=== PATIENT | male | born 1940 | race Caucasian/White ===

== ENCOUNTER 2016-04-18 18:53 | Emergency (ER) | payer OTHER, MEDICARE ==
[~2016-04-18] VITALS: Ht 188 cm; Wt 131.5 kg
[~2016-04-18 18:53] MED LIST: ASPIR 8181 MG PO; FLAGYL 25O MG250 M1 PO; K-DUR 20MEQ TA20 MEQ PO; NORVASC 5MG TAB5 MG PO
--- NOTE | 2016-04-18 19:00 | ED SKIN/ALLERGY COMPLAINT ---
History of Present Illness General Chief Complaint: Dyspnea (COPD, CHF, Other) Stated Complaint: BIBA ALLERGIC REACTION, DIFF BREATHING Source: patient, old records Exam Limitations: no limitations Vital Signs & Intake/Output Vital Signs & Intake/Output Vital Signs Date Time Temp Pulse Resp B/P Pulse O2 O2 Flow FiO2 Ox Delivery Rate 04/18 2215 96.7 93 20 140/67 95 Room Air 04/18 1900 99.5 105 28 130/64 98 Nasal 2.0L Cannula 04/18 185 94 Aerosol Mask Allergies Coded Allergies: shellfish derived (ANAPHYLAXIS 04/18/16) Triage Nurses Notes Reviewed? yes Onset: Abrupt Duration: minute(s): (30) Timing: single episode today Severity: severe Possible Factors: COCONUT SHRIMP No Modifying Factors: none Associated Symptoms: RESPIRATORY DISTRESS HPI: This is a 76-year-old male with history of hypertension, neuropathy and previous possible allergic reaction to both coconut oil and shellfish who presents by EMS from home for chief complaint of severe distress. Patient states he ate about 12-13 coconut sugar approximately an hour prior to arrival. At about 640 he started to feel itchy and he says the swelling was pouring off of him and he was short of breath. Patient found hypoxic at 89% on room air, dusky and mottled with respiratory distress and wheezing. He was given 3 albuterol treatments as well as IV Benadryl 25 mg and subcutaneous epinephrine. Patient took 50 g of Benadryl prior to EMS arrival. Patient states that he feels dramatically better at this time. Awake alert and mentating. No stridor. Bilateral wheezing and rhonchi heard. Enlarged heart but no obvious swelling. Denies any chest pain. Denies any confusion or nausea at this time. (TORRI PACHECO,WALT) Reconcile Medications Amlodipine (Norvasc 5MG Tab) 5 MG TABLET 1 TAB PO DAILY HTN (Reported) Aspirin (Ecotrin) 81 MG TABLET.DR 81 MG PO DAILY HEART HEALTH (Reported) Cyanocobalamin (Vitamin B-12) 1,000 MCG TABLET 1 TAB PO DAILY SUPPLEMENT ( Reported) Epinephrine (Epipen 2-Oz) 0.3 MG/0.3 ML AUTO.INJCT 1 INJ IM X1 PRN SEVERE ALLERGIC REACTION Esomeprazole Magnesium (Nexium) 20 MG CAPSULE.DR 1 CAP PO DAILY GI (Reported) Gabapentin 300 MG CAPSULE 1 CAP PO TID NEUROPATHY (Reported) Multivitamin (Multi-Day Vitamins) 1 EACH TABLET 1 TAB PO DAILY SUPPLEMENT ( Reported) Naproxen Sodium (Aleve) 220 MG CAPSULE 1-2 CAP PO PRN PAIN (Reported) Prednisone 50 MG TABLET 1 TAB PO DAILY allergic reaction Tramadol HCl 50 MG TABLET 1 TAB PO Q6P PRN PAIN (Reported) (LEXIE PACHECO,RICA Thomas) Past History Medical History Any Pertinent Medical History? 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 No (TORRI PACHECO,WALT) Review of Systems Review of Systems Constitutional: Denies: chills, fever, malaise, weakness. Respiratory: Reports: short of breath. Denies: cough, sputum production. Cardiovascular: Denies: chest pain, palpitations. GI: Denies: abdominal pain. Hematologic/Endocrine: Denies: bruising, bleeding, polyuria, polydipsia. (TORRI PACHECO,WALT) Physical Exam Physical Exam General Appearance: well developed/nourished, alert, awake, anxious, moderate distress, obese Head: atraumatic, normal appearance Eyes: Bilateral: normal appearance, PERRL, EOMI. Ears, Nose, Throat: ENLARGED TIME, NO OBVIOUS SWELLING Neck: normal inspection, supple, full range of motion, NO STRIDOR Respiratory: respiratory distress, BILATERAL WHEEZING, RHONCHI Cardiovascular: tachycardia Peripheral Pulses: 2+ radial (R), 2+ radial (L) Gastrointestinal: normal bowel sounds, soft, non-tender Extremities: normal inspection, normal capillary refill, normal range of motion, calf tenderness Skin: intact, normal color, diaphoresis (TORRI PACHECO,WALT) Progress Differential Diagnosis: allergic reaction, anaphylaxis Plan of Care: Orders Procedure Date/time Status TROPONIN LEVEL 04/18 2006 Complete RT ED ORDERS 04/18 1899 Active COMPREHENSIVE METABOLIC PANEL 04/18 1899 Complete CBC WITHOUT DIFFERENTIAL 04/18 1899 Complete EKG 04/18 185 Active Laboratory Tests 04/18/16 2007: Anion Gap 12, Estimated GFR > 60, BUN/Creatinine Ratio 20.9, Glucose 206 H, Calcium 8.5, Total Bilirubin 0.6, AST 64 H, ALT 77 H, Alkaline Phosphatase 84, Troponin I < 0.01, Total Protein 6.5, Albumin 3.8, Globulin 2.7, Albumin/ Globulin Ratio 1.4, CBC w Diff NO MAN DIFF REQ, RBC 4.34 L, MCV 92.2, MCH 30.6, RDW 13.7, MPV 8.1, Gran % 75.0, Lymphocytes % 18.5 L, Monocytes % 5.6, Eosinophils % 0.8, Basophils % 0.1, Absolute Granulocytes 11.7 H, Absolute Lymphocytes 2.9, Absolute Monocytes 0.9 H, Absolute Eosinophils 0.1, Absolute Basophils 0, PUBS MCHC 33.2 04/18/161907: Troponin I Cancelled Hand-Off Endorsed To: LEXIE PACHECO,RICA Thomas Endorsed Time: 1925 Pending: labs, other (REEVALUATION) (WALT WILD MD) Departure Departure Disposition: STILL A PATIENT Condition: Stable Clinical Impression Primary Impression: Anaphylaxis Referrals: ORQUIDEA PACHECO,RAZIA Guaman (PCP/Family) Departure Forms: Customer Survey General Discharge Information (WALT WILD MD) Departure Prescriptions: Current Visit Scripts Prednisone 1 TAB PO DAILY #5 TAB Epinephrine (Epipen 2-Oz) 1 INJ IM X1 PRN SEVERE ALLERGIC REACTION #1 KIT Comments 04/18/16, 23:16... pt feeling well and wishes to go home... 02 sat 95% on room air. Discussed at length with patient and follow up care plan. He shares that he feels comfortable going home. (LEXIE PACHECO,RICA Thomas) Critical Care Note Critical Care Note Critical Care Time: 30-74 min (WALT WILD MD)
[2016-04-18] MEDS ORDERED: TRAMADOL HCL50 M1 PO (19:11)
[2016-04-18] MEDS ORDERED: GABAPENTIN300 M2 PO (19:11)
[2016-04-18] MEDS ORDERED: MULTI-DAY VITA1 EACH PO (19:21)
[2016-04-18] MEDS ORDERED: NEXIUM20 M1 PO (19:21)
[2016-04-18] MEDS ORDERED: VITAMIN B-121000 MC3 PO (19:22)
[2016-04-18] MEDS ORDERED: ALEVE220 M1 PO (19:22)
[2016-04-18 20:30] LABS: ABSOLUTE BASOPHIL COUNT 0 /CUMM (0.0-0.2); ABSOLUTE EOSINOPHIL COUNT 0.1 /CUMM (0.0-0.7); ABSOLUTE GRANULOCYTE CT 11.7 /CUMM (1.4-6.5); ABSOLUTE LYMPH COUNT 2.9 /CUMM (1.2-3.4); ABSOLUTE MONOCYTE COUNT 0.9 /CUMM (0.10-0.60); BASOPHIL % 0.1 % (0.0-2.0); EOSINOPHIL % 0.8 % (0-5); MEAN CORPUSCULAR HGB 30.6 PG (27.0-31.0); MEAN CORPUSCULAR HGB CONC 33.2 G/DL (33.0-37.0); MEAN CORPUSCULAR VOLUME 92.2 FL (80.0-94.0); MEAN PLATELET VOLUME 8.1 FL (7.4-10.4); PLATELET COUNT 159 /CUMM (130-400); RBC DISTRIBUTION WIDTH 13.7 % (11.5-14.5); RED BLOOD CELL CT 4.34 /CUMM (4.70-6.10); WHITE BLOOD CELL COUNT 15.6 /CUMM (4.8-10.8)
[2016-04-18 22:16] VITALS: BP 140/67
[2016-04-18] MEDS ORDERED: PREDNISONE50 M1 PO (23:15)
[2016-04-18] MEDS ORDERED: EPIPEN 2-P0.3 MG/0.3 IM (23:15)
== END 2016-04-18 23:45 ==
LOC: ERH 18:53
PROVIDERS: Emergency Medicine
DX: T78.02XA Anaphylactic reaction due to shellfish (crustaceans), initial encounter (principal)
CPT/HCPCS: 1263; 93005; 93010; 96361; 96374; 96375; J2930

== ENCOUNTER → 2017-04-19 | Day surgery (SDC) | payer OTHER, MEDICARE ==
[~2017-04-19] VITALS: Ht 188 cm; Wt 124.7 kg
[~2017-04-19] MED LIST changes: +ALEVE220 M1 PO; -ASPIR 8181 MG PO; +ASPIRIN EC81 M1 PO; +CENTRUM SILVER1 EAC3 PO; +ELIQUIS5 M1 PO; +EPIPEN 2-P0.3 MG/0.3 IM; +GABAPENTIN300 M2 PO; +METFORMIN HCL500 M3 PO; +NEXIUM20 M1 PO; -NORVASC 5MG TAB5 MG PO; +NORVASC5 M1 PO; +PREDNISONE50 M1 PO; +TAMSULOSIN HCL0.4 M1 PO; +TRAMADOL HCL50 M1 PO; +VITAMIN B-121000 MC3 PO; +VITAMIN D31000 UNI2 PO
--- NOTE | 2017-04-19 13:03 | Operative Report ---
Operative/Inv Procedure Report Surgery Date: 04/19/17 Name of Procedure: Cataract extraction lens implantation left eye Pre-Operative Diagnosis: Age related cataract left eye 20/30 vision 20/60 glare vision Post-Operative Diagnosis: Same Estimated Blood Loss: none Surgeon/Machine Cementer And Folder: Akil PACHECO,Skyler Ya Anesthesia: local monitored anesthesi Complications: None Operative/Procedure Note Note: The patient was brought to the operating room standard monitoring equipment was attached the patient was prepped and draped in the usual fashion for intraocular surgery. A lid speculum was placed to retract the lids. The case was begun by making a temporal incision with a 2.4 mm keratome. The eye was stabilized with a Davis ring during this incision. 1 mL of non-preserved lidocaine was introduced into the anterior chamber to provide anesthesia. The anterior chamber was then filled and deepened with viscoelastic. A curvilinear capsulorrhexis was achieved using a 30-gauge needle and is a cystotome and capsulorrhexis was finished using a Utrata forceps. A second or paracentesis incision was made temporally with a 1 mm MVR blade. The lens was then hydrodissected with balanced salt solution and found to be rotatable. The lens was emulsified using phacoemulsification and a modified four-quadrant cracking technique. The residual cortical material was removed using automated irrigation and aspiration and as much of the anterior capsular rim was cleaned as well as possible. The posterior capsule was cleaned first with the automated machine on a low setting and then manually with a Quinton squeegee. The capsular bag was deepened with viscoelastic. The lens a Technis 1 19.0 Diopter placed into the bag under direct visualization and rotated so that the haptics were at 12 and 6:00. Viscoelastic was then removed from the eye by flushing it out and then by automated irrigation and aspiration. The eye was pressurized to a normal tone. 1/10 of a cc of vancomycin solution was introduced into the anterior chamber to provide antibiotic prophylaxis. The wounds were sealed by hydrating the stroma adjacent to them and the eye was left at a proper tone after the wounds were checked and found not to be leaking. The lid speculum was removed from the orbit. Antibiotic and steroid drops were placed on the eye and then the eye was shielded. Monitoring equipment was removed from the patient and the patient was removed from the operative suite to the holding area. The patient tolerated the procedure well and will be seen in the office tomorrow.
== END ==
LOC: STS 00:43
DX: H25.9 Unspecified age-related cataract (principal); E11.40 Type 2 diabetes mellitus with diabetic neuropathy, unspecified; Z79.84 Long term (current) use of oral hypoglycemic drugs; I10 Essential (primary) hypertension; I48.91 Unspecified atrial fibrillation; Z79.01 Long term (current) use of anticoagulants; E78.00 Pure hypercholesterolemia, unspecified; Z85.72 Personal history of non-Hodgkin lymphomas; Z85.820 Personal history of malignant melanoma of skin
CPT/HCPCS: J2250; V2632

== ENCOUNTER → 2017-06-14 | Day surgery (SDC) | payer OTHER, MEDICARE ==
[~2017-06-14] VITALS: Ht 188 cm; Wt 124.7 kg
[~2017-06-14] MED LIST changes: +COUMADIN7.5 M1 PO; +GABAPENTIN600 M1 PO; +PRAVACHOL40 M1 PO; +VITAMIN B-12500 MC2 PO
--- NOTE | 2017-06-14 08:35 | Operative Report ---
Operative/Inv Procedure Report Surgery Date: 06/14/17 Name of Procedure: Cataract extraction lens implantation right eye Pre-Operative Diagnosis: Age-related cataract right eye 20/30 vision 20/60 glare vision Post-Operative Diagnosis: Same Estimated Blood Loss: none Surgeon/Software Quality Specialist: Akil PACHECO,Skyler Ya Anesthesia: local monitored anesthesi Complications: None Operative/Procedure Note Note: The patient was brought to the operating room standard monitoring equipment was attached the patient was prepped and draped in the usual fashion for intraocular surgery. A lid speculum was placed to retract the lids. The case was begun by making a temporal incision with a 2.4 mm keratome. The eye was stabilized with a Davis ring during this incision. 1 mL of non-preserved lidocaine was introduced into the anterior chamber to provide anesthesia. The anterior chamber was then filled and deepened with viscoelastic. A curvilinear capsulorrhexis was achieved using a 30-gauge needle and is a cystotome and capsulorrhexis was finished using a Utrata forceps. A second or paracentesis incision was made temporally with a 1 mm MVR blade. The lens was then hydrodissected with balanced salt solution and found to be rotatable. The lens was emulsified using phacoemulsification and a modified four-quadrant cracking technique. The residual cortical material was removed using automated irrigation and aspiration and as much of the anterior capsular rim was cleaned as well as possible. The posterior capsule was cleaned first with the automated machine on a low setting and then manually with a Quinton squeegee. The capsular bag was deepened with viscoelastic. The lens a Technis 1 18.5 Diopter placed into the bag under direct visualization and rotated so that the haptics were at 12 and 6:00. Viscoelastic was then removed from the eye by flushing it out and then by automated irrigation and aspiration. The eye was pressurized to a normal tone. 1/10 of a cc of vancomycin solution was introduced into the anterior chamber to provide antibiotic prophylaxis. The wounds were sealed by hydrating the stroma adjacent to them and the eye was left at a proper tone after the wounds were checked and found not to be leaking. The lid speculum was removed from the orbit. Antibiotic and steroid drops were placed on the eye and then the eye was shielded. Monitoring equipment was removed from the patient and the patient was removed from the operative suite to the holding area. The patient tolerated the procedure well and will be seen in the office tomorrow.
== END ==
LOC: STS 01:08
DX: H25.9 Unspecified age-related cataract (principal); I10 Essential (primary) hypertension; E11.9 Type 2 diabetes mellitus without complications; Z79.84 Long term (current) use of oral hypoglycemic drugs; I48.91 Unspecified atrial fibrillation; Z79.01 Long term (current) use of anticoagulants
CPT/HCPCS: J2250; V2632

== ENCOUNTER 2017-12-08 09:47 | Inpatient (IN) | payer OTHER, MEDICARE ==
[~2017-12-08] VITALS: Ht 188 cm; Wt 127.9 kg
[~2017-12-08 09:47] MED LIST changes: -VITAMIN B-12500 MC2 PO
[2017-12-08 10:36] LABS: ABSOLUTE BASOPHIL COUNT 0 /CUMM (0.0-0.2); ABSOLUTE EOSINOPHIL COUNT 0.2 /CUMM (0.0-0.7); ABSOLUTE GRANULOCYTE CT 4.9 /CUMM (1.4-6.5); ABSOLUTE LYMPH COUNT 2.5 /CUMM (1.2-3.4); ABSOLUTE MONOCYTE COUNT 0.6 /CUMM (0.10-0.60); BASOPHIL % 0.3 % (0.0-2.0); GRANULOCYTE % 59.9 % (42.2-75.2); HEMATOCRIT 39.9 % (42-52); MEAN CORPUSCULAR HGB 30.8 PG (27.0-31.0); MEAN CORPUSCULAR HGB CONC 34.2 G/DL (33.0-37.0); MEAN CORPUSCULAR VOLUME 90.1 FL (80.0-94.0); MEAN PLATELET VOLUME 8.1 FL (7.4-10.4); PLATELET COUNT 174 /CUMM (130-400); RBC DISTRIBUTION WIDTH 13.6 % (11.5-14.5); RED BLOOD CELL CT 4.43 /CUMM (4.70-6.10); WHITE BLOOD CELL COUNT 8.1 /CUMM (4.8-10.8)
[2017-12-08 10:43] LABS: PT 23.7 SEC (9.4-12.5); PTT 43 SEC (25-37)
[2017-12-08] MEDS ORDERED: LYRICA75 M1 PO (10:48)
[2017-12-08] MEDS ORDERED: CELECOXIB200 M1 PO (10:49)
--- NOTE | 2017-12-08 10:55 | ED NEURO DEFICIT/STROKE ---
See Addendum History of Present Illness General Chief Complaint: Neuro Symptoms/ Deficit Stated Complaint: SIB DR. FERNÁNDEZ FOR CT SCAN OF ?STROKE Source: patient, old records Exam Limitations: no limitations Vital Signs & Intake/Output Vital Signs & Intake/Output Vital Signs Date Time Temp Pulse Resp B/P B/P Pulse O2 O2 Flow FiO2 Mean Ox Delivery Rate 12/08 1810 70 20 160/86 98 12/08 1627 76 20 138/75 98 Room Air 12/08 1308 98.0 82 18 180/89 99 12/08 1200 98.0 88 18 150/71 100 12/08 0954 97.8 97 18 150/77 97 Room Air Allergies Coded Allergies: shrimp (Severe, ANAPHYLAXIS 09/17/16) Reconcile Medications Amlodipine Besylate (Norvasc) 5 MG TABLET 1 TAB PO DAILY HTN (Reported) Celecoxib 200 MG CAPSULE 1 CAP PO BID PAIN (Reported) Cholecalciferol (Vitamin D3) 1,000 UNIT TABLET 1 TAB PO DAILY VITAMIN SUPPORT (Reported) Cyanocobalamin (Vitamin B-12) 1,000 MCG TABLET 1 TAB PO DAILY VITAMIN SUPPORT (Reported) Metformin HCl 500 MG TABLET 1 TAB PO QPM DM (Reported) Multivit-Min/FA/Lycopen/Lutein (Centrum Silver Tablet) 0.4 MG-300 MCG-250 MCG TABLET 1 TAB PO DAILY VITAMIN SUPPORT (Reported) Pravastatin Sodium (Pravachol) 40 MG TABLET 1 TAB PO DAILY CHOLESTEROL ( Reported) Pregabalin (Lyrica) 75 MG CAPSULE 1 CAP PO BID NEUROPATHY (Reported) Tamsulosin HCl 0.4 MG CAP.ER.24H 1 CAP PO DAILY PROSTATE (Reported) Tramadol HCl 50 MG TABLET 1 TAB PO Q6P PRN PAIN (Reported) Warfarin Sodium (Coumadin) 7.5 MG TABLET 1 TAB PO DAILY BLOOD THINNER ( Reported) Triage Note: 77 Y/O MALE SENT BY DR FERNÁNDEZ FOR EVAL OF ? STROKE. PT STATES HE HAD "CHILLS" EARLIER IN THE WEEK BUT WENT TO BED. STATES HE WAS "OK" THE NEXT DAY HOWEVER HAS NOTICED THROUGHOUT THE WEEK THAT HIS R EYE CONTINUES TO BE "OFF". PT STATES HE SEEMS TO HAS LOST PERIPHERAL VISION IN R EYE. FELT "CONFUSED" EARLIER IN THE WEEK AND WAS OFF BALANCE, THOUGH DENIES AT PRESENT. SLIGHT R FACIAL DROOP NOTED WHICH PT IS UNSURE HOW LONG THAT HAS BEEN PRESENT. SPEAKING CLEARLY WITH NO DEFICITS NOTED. TAKEN FOR EKG AND EVAL Triage Nurses Notes Reviewed? yes Onset: Abrupt (5 days ago) Timing: recent history New Weakness: none Altered Sensations: none; decreased visual acuity R side Vision Problem? 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 States that the dizziness and confusion were short lived and resolved the same day, but he continues to have decreased visual field acuity to the right eye. States that he has not fallen recently, no sick contacts, denies palpitations or chest pain, denies weakness to extremities or altered sensorium. Walks with a cane normally , but states he feels like he needs it more since the event 5 days ago. (Eddie Fernandez MD) Past History Travel History Traveled to [place] past 21 day No Medical History Any Pertinent Medical History? 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 No (Eddie Fernandez MD) Review of Systems Review of Systems Constitutional: Reports: see HPI. EENTM: Reports: blurred vision, visual changes. Respiratory: Denies: cough, hemoptysis. Cardiovascular: Denies: chest pain, palpitations. GI: Denies: abdominal pain. Neurological/Psychological: Denies: ataxia, cognitive dysfunction, numbness. (Eddie Fernandez MD) Physical Exam Physical Exam General Appearance: well developed/nourished, no apparent distress, alert, awake , comfortable Head: atraumatic, normal appearance Eyes: Right: vision change (decreased lateral, inferior ). Bilateral: PERRL, EOMI. Ears, Nose, Throat: normal ENT inspection Neck: normal inspection Respiratory: normal breath sounds, lungs clear Cardiovascular: normal peripheral pulses, irregularly irregular Peripheral Pulses: 2+ radial (R), 2+ radial (L) Gastrointestinal: soft, non-tender Cranial Nerves: normal hearing, normal speech, PERRL, facial droop (slight r sided) Coordination/Gait: normal finger to nose Motor/Sensory: no motor/sensory deficits Reflexes: 2+: bicep (R), bicep (L), ankle (R), ankle (L). Skin: intact Core Measures CVA/TIA Diagnosis: Yes NIH Stroke Scale NIH Stroke Scale Response Value Level of Consciousness alert 0 LOC Questions answers both correctly 0 LOC Commands obeys both correctly 0 Best Gaze normal 0 Visual Reyna partial hemianopia 1 Facial Paresis minor 1 Motor Arm - Left no drift 0 Motor Arm - Right no drift 0 Motor Leg - Left no drift 0 Motor Leg - Right no drift 0 Limb Ataxia no ataxia 0 Sensory normal 0 Best Language no aphasia 0 Dysarthria normal articulation 0 Extinction and Inattention no neglect 0 Total 2 Date Last Known Well: 12/04/17 Symptom Start Date: 12/04/17 tPA Risk/Benefit discussion I have discussed the risks, benefits, and alternatives of Alteplase treatment including: - If given promptly, can resolve or have major improvement in stroke symptoms. - Bleeding (hemorrhage) is the most common risk that can occur. - Bleeding may occur into the brain and cause~terminal makeup operator serious disability~ including - this is rare, affecting about 1% of patients. - Alternative treatments with proven benefit for patients with stroke include aspirin and care in a specialized unit where staff members pay careful attention to a variety of basic aspects of care. tPA given? No Reason tPA not given Medical Contraindication Swallow Evaluation Not Applicable Sepsis Present: No Sepsis Focused Exam Completed? No (Diallo Fernandez MD[email or web address]) Progress Differential Diagnosis: hypoglycemia, stroke, tia, embolic phenomenon to R eye Plan of Care: Orders Procedure Date/time Status Regular Diet 12/09 B Active LIPID PANEL 12/09 599 Active CBC WITHOUT DIFFERENTIAL 12/09 599 Active BASIC ELECTROLYTES PLUS BUN&CR 12/09 599 Active ECHOCARDIOGRAM 12/09 1915 Active Pathway - chart 12/08 1914 Active Patient Data 12/08 1914 Active Code Status 12/08 1914 Active ED Holding Orders 12/09 1831 Active Admit to inpatient 12/08 1832 Active Vital Signs 12/08 183 Active Code Status 12/08 1832 Complete Intake & Output 12/08 1041 Active URINE DRUG SCREEN FOR ER ONLY 12/08 0951 Complete URINALYSIS 12/08 950 Complete TROPONIN LEVEL 12/08 950 Complete PARTIAL THROMBOPLASTIN TIME 12/08 950 Complete PROTHROMBIN TIME 12/08 0851 Complete COMPREHENSIVE METABOLIC PANEL 12/08 950 Complete CBC WITHOUT DIFFERENTIAL 12/08 950 Complete EKG 12/08 950 Active [id number] DOPPLER 12/08 UNK Active SPEECH EVALUATION 12/08 UNK Active PT Evaluate & Treat 12/08 UNK Active House Staff 12/08 UNK Active VTE Mechanical Prophylaxis 12/08 UNK Active Vital Signs 12/08 UNK Active Telemetry/Director Of Human Resources 12/08 UNK Active NIH Stroke Scale 12/08 UNK Active Activity/Ambulation 12/08 UNK Active Current Medications Sig/Yong Start time Last Medication Dose Stop Time Status Admin Aspirin 81 MG DAILY 12/09 0900 UNVr (Aspirin) Atorvastatin Calcium 80 MG 1700 12/08 1930 UNVr (Lipitor) Laboratory Tests 12/08/17 1138: Urine Opiates Screen < 100, Methadone Screen < 40, Barbiturate Screen < 60, Ur Phencyclidine Scrn < 6.00, Amphetamines Screen < 100, U Benzodiazepines Scrn < 85, Urine Cocaine Screen < 50, Urine Cannabis Screen < 5.00, Urine Color YEL, Urine Clarity HAZY H, Urine pH 6.0, Ur Specific Standish >= 1.030, Urine Protein NEG, Urine Ketones NEG, Urine Nitrite NEG, Urine Bilirubin NEG, Urine Urobilinogen 0.2, Ur Leukocyte Esterase NEG, Ur Microscopic SEDIMENT EXAMINED, Urine RBC 1-3, Urine WBC RARE, Ur Epithelial Cells FEW, Urine Crystals 4+ CA OX H, Urine Bacteria FEW H, Urine Hemoglobin SMALL H, Urine Glucose NEG 12/08/17 1002: Anion Gap 10, Estimated GFR > 60, BUN/Creatinine Ratio 23.3, Glucose 127 H, Calcium 9.1, Total Bilirubin 0.8, AST 35, ALT 41, Alkaline Phosphatase 85, Troponin I < 0.01, Total Protein 7.2, Albumin 4.4, Globulin 2.8, Albumin/ Globulin Ratio 1.6, PT 23.7 H, INR 2.16 H, APTT 43 H, CBC w Diff NO MAN DIFF REQ, RBC 4.43 L, MCV 90.1, MCH 30.8, MCHC 34.2, RDW 13.6, MPV 8.1, Gran % 59.9, Lymphocytes % 30.5, Monocytes % 7.3, Eosinophils % 2.0, Basophils % 0.3, Absolute Granulocytes 4.9, Absolute Lymphocytes 2.5, Absolute Monocytes 0.6, Absolute Eosinophils 0.2, Absolute Basophils 0 Radiologist called around 12pm to speak with HALLEY Goetz about pts CT findings, possible lesion noted in parietal/occipital and recommend MRI w + w/o contrast. MRI showed subacute occipital lobe infarct. SPoke with neurology on the phone regarding findings, who stated to admit the patient. Patient did want to leave AMA, and neurology stated that he was not to drive home. Patient spoke with his who convinced him to stay overnight. Spoke with Dr Mcguire who will admit patient under observation in telemetry. Diagnostic Imaging: Viewed by Me: CT Scan, MRI. Discussed w/RAD: MRI. Initial ED EKG: AFIB (Jim PACHECO,Eddie) Departure Departure Disposition: STILL A PATIENT Condition: Stable Clinical Impression Primary Impression: Homonymous hemianopsia Qualifiers: Laterality: right Qualified Code: H53.461 - Homonymous bilateral field defects, right side Referrals: Rajesh Fernández MD (PCP/Family) Departure Forms: Customer Survey General Discharge Information (Eddie Fernandez MD) Observation Note [facility] Patient In: Non-ED OBS Care Area Rationale for Observation: My rational for observation is as follows Patient with subacute CVA x 3 days, requires neuro evaluation. Patient is therapeutic on coumadin. Was briefly off coumadin for epidural injection.. Resident Co-Sign Statement Statement: ED Attending supervision documentation- [x] I saw and evaluated the patient. I have also reviewed all the pertinent lab results and diagnostic results. I agree with the findings and the plan of care as documented in the Resident's documentation. 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 Exam reveals lateral right eye visual field deficits. Agree with observation admission [] I have reviewed the ED Record and agree with the Resident's documentation. [] Additions or exceptions (if any) to the Resident's note and plan are summarized below: [] (Janeen PACHECO, Angus)
--- NOTE | 2017-12-08 12:07 | CT SCAN REPORT ---
EXAMINATION: CT HEAD WITHOUT CONTRAST CLINICAL INFORMATION: Neuro symptoms. Rule out ICH/mass. COMPARISON: None. TECHNIQUE: Contiguous axial imaging was performed from the skull base to vertex without intravenous administration of contrast. DLP: 636 mGy-cm. FINDINGS: There is ill-defined focus of mild hyperdensity with marginating hypodensity involving the subcortical white matter of the high left parietal lobe. The cortical costa matter is spared. There is no regional mass effect or effacement of sulci. The remainder of the brain parenchyma appears normal without hemorrhage, large territory infarction, or extra-axial collection. There is mild commensurate prominence of the ventricles and sulci without evidence of hydrocephalus. There is mild paranasal sinus mucosal thickening without fluid levels. The mastoid air cells are clear. The calvarium is intact. The dural venous sinuses demonstrate normal attenuation for noncontrast technique. IMPRESSION: - Ill-defined attenuation in the subcortical white matter of the high left parietal lobe with underlying lesion is suspected. Given that the cortical costa matter appears spared an infarct is considered less likely. A dedicated brain tumor protocol MRI without and with contrast is recommended for diagnostic evaluation. No significant mass effect. - No other acute intracranial abnormality. RECOMMENDATION: Brain MRI without and with contrast to include postcontrast ROBERTS/MPRAGE sequence. This critical result was discussed with Merly Goetz on 12/08/2017 12:01 PM, and it was ascertained that the content and urgency of the report was understood at the time of direct communication.
--- NOTE | 2017-12-08 15:29 | MRI REPORT ---
EXAMINATION: MR BRAIN WITHOUT AND WITH CONTRAST CLINICAL INFORMATION: Evaluate brain lesion/mass seen on CT scan. COMPARISON: Head CT performed earlier the same day. TECHNIQUE: Multiplanar, multisequence imaging of the brain was performed before and after the intravenous administration of 10 mL of Gadavist. FINDINGS: There is mildly expansile gyriform T2/FLAIR hyperintensity in the left occipital lobe with some associated susceptibility signal and diffuse gyriform enhancement. The adjacent sulci are effaced but no regional mass effect is seen. There are moderate foci of T2 hyperintensity throughout the bilateral cerebral white matter and central dejon compatible with small vessel ischemic changes. No lobar hemorrhage is seen. There is no extra-axial collection. There is mild brain parenchymal volume loss with prominence of the ventricles and sulci. Except as above no abnormal intracranial enhancement is seen. The major arterial flow voids are preserved at the skull base. The orbital contents are normal. There is moderate paranasal sinus mucosal thickening without fluid levels. IMPRESSION: Mildly expansile gyriform T2/FLAIR hyperintensity in the left occipital lobe with associated enhancement and petechial hemorrhage. The imaging findings interpreted in conjunction with the prior head CT are most compatible with a subacute infarct. No underlying mass lesion is seen. The remainder of the brain parenchyma is within normal limits allowing for moderate small vessel ischemic changes in the cerebral white matter and central dejon.
--- NOTE | 2017-12-08 19:05 | History & Physical ---
Dominga Moseley 12/08/171904: General Information and HPI MD Statement: I have seen and personally examined MIREYA MORRIS and documented this H&P. The patient is a 77 year old M who presented with a patient stated chief complaint of []. Source of Information: patient, family Exam Limitations: no limitations History of Present Illness: 77 year old male with PMH Afib on coumadin, JERMAN on CPAP (followed by Dr. Segura ), HTN, Chronic LBP (receiving injections of steroids last dose 12/02/17), BLE peripheral nephropathy, Non hodgkins lymphoma (last chemo 6 years ago) presenting with 5-6 day history of confusion, lightheadedness, fatigue, slight headache, and right sided vision loss. He also reports associated chills. Patient states he held his coumadin for 5 days prior to back injection and then restarted on 12/02 after the injection. He states he has been more 'clumsy and bumping into items on the right side of his body'. He states he was driving and almost missed a right hand turn 2/2 inability to see the turn. Denies chest pain, SOB, fever, recent illness, history of similar sx. Patient does report increased stress in his like currently: brother 2 weeks ago and his son is going through a divorce. Allergies/Medications Allergies: Coded Allergies: shrimp (Severe, ANAPHYLAXIS 09/17/16) Past History Travel History Traveled to [place] past 21 day No Medical History Neurological: severe neuropathy EENT: NONE Cardiovascular: AFIB, hypertension Respiratory: bronchitis Gastrointestinal: DIARRHEA Hepatic: NONE Renal: NONE Musculoskeletal: spinal stenosis Psychiatric: NONE Endocrine: diabetes Blood Disorders: NONE Cancer(s): melanoma, LYMPHOMA of the spine ICU RN/Reproductive: NONE Other Medical Hx: JERMAN on CPAP History of MRSA: No History of VRE: No History of CDIFF: Yes Surgical History Surgical History: non-contributory Past Family/Social History Psychosocial History Where do you live? Home Who Do You Live With? spouse Services at Home: None Primary Language: Frisian Smoking Status: Former Smoker (quit 50 yrs ago) ETOH Use: occasional use Illicit Drug Use: denies illicit drug use Employment History Employment Employed Profession/Employer [employer] Review of Systems Review of Systems Constitutional: Reports: chills, malaise. Denies: diaphoresis, fever. EENTM: Reports: visual changes. Cardiovascular: Reports: no symptoms. Respiratory: Reports: no symptoms. GI: Reports: no symptoms. Genitourinary: Reports: no symptoms. Musculoskeletal: Reports: no symptoms. Skin: Reports: no symptoms. Neurological/Psychological: Reports: ataxia, confusion, headache. Exam & Diagnostic Data Last 24 Hrs of Vital Signs/I&O Vital Signs Date Time Temp Pulse Resp B/P B/P Pulse O2 O2 Flow FiO2 Mean Ox Delivery Rate 12/08 2058 98.0 88 20 143/81 95 Room Air 12/08 1810 70 20 160/86 98 12/08 1627 76 20 138/75 98 Room Air 12/08 1308 98.0 82 18 180/89 99 12/08 1200 98.0 88 18 150/71 100 12/08 0954 97.8 97 18 150/77 97 Room Air Intake & Output 12/08 1600 12/08 0800 12/08 0000 Intake Total 0 Output Total Balance 0 Intake, Oral 0 Patient 280 lb Weight Weight Reported by Patient Measurement Method Physical Exam General Appearance Alert, Oriented X3, Cooperative, No Acute Distress Skin No Rashes Skin Temp/Moisture Exam: Warm/Dry HEENT Atraumatic, PERRLA, EOMI, Mucous Membr. moist/pink Neck Supple, +2 Carotid Pulse wo Bruit Cardiovascular Regular Rate, Normal S1, Normal S2, No Murmurs Lungs Clear to Auscultation Abdomen Normal Bowel Sounds, Soft, No Tenderness Neurological Normal Speech, Strength at 5/5 X4 Ext, Normal Tone, Sensation Intact, right hemianopsia, left visual goldsmith intact Assessment/Plan Assessment: 77 year old male with PMH Afib on coumadin, JERMAN on CPAP (followed by Dr. Segura ), HTN, Chronic LBP (receiving injections of steroids last dose 12/02/17), BLE peripheral nephropathy, Non hodgkins lymphoma (last chemo 6 years ago) presenting with 5-6 day history of confusion, lightheadedness, fatigue, slight headache, and right sided vision loss. ED work up significant for MRI findings consistent with left occipital lobe subacute infarct with petecial hemorrhage. Patient will be admitted to ICU with increased INR on coumadin in setting of petercial hemorrhage on MRI. Problem List: 1. Subacute left occipital lobe infarct 2. Afib 3. JERMAN 4. HTN Admission Data: VS T97.8 P97 RR18 BP150/77 Sat 97%RA Labs: WBC 8.1 H/H 13.7/39.9 Plt 174 Chemistry WNL trop negative, INR 2.16, UA neg, Utox neg CT head: IMPRESSION: - Ill-defined attenuation in the subcortical white matter of the high left parietal lobe with underlying lesion is suspected. Given that the cortical costa matter appears spared an infarct is considered less likely. A dedicated brain tumor protocol MRI without and with contrast is recommended for diagnostic evaluation. No significant mass effect. - No other acute intracranial abnormality. RECOMMENDATION: Brain MRI without and with contrast to include postcontrast ROBERTS/MPRAGE sequence. MRI brain: IMPRESSION: Mildly expansile gyriform T2/FLAIR hyperintensity in the left occipital lobe with associated enhancement and petechial hemorrhage. The imaging findings interpreted in conjunction with the prior head CT are most compatible with a subacute infarct. No underlying mass lesion is seen. The remainder of the brain parenchyma is within normal limits allowing for moderate small vessel ischemic changes in the cerebral white matter and central dejon. #Subacute left occipital lobe infarct-possibly 2/2 interruption of anticoagulation with history of Afib -Echo -Carotid US -Neurology consult -Hold coumadin for now -ASA 81mg -Atorvastatin 80mg daily -Neuro checks q1hour -Bedside swallow -ICU monitoring -Speech eval -PT/OT #Afib -hold coumadin in setting of petechial hemorrhage -monitor on tele #JERMAN -CPAP #HTN -monitor BP DVT prophylaxis: alps/ambulation/no chemical tx 2/2 acute brain bleed Code status: full code As Ranked By This Provider Problem List: 1. Homonymous hemianopsia Qualifiers Laterality: right Qualified Code: H53.461 - Homonymous bilateral field defects, right side 2. CVA (cerebral vascular accident) Core Measures/Misc (11/28) Acute Coronary Syndrome ACS Diagnosis: No Congestive Heart Failure Congestive Heart Failure Diagnosis No Cerebrovascular Accident CVA/TIA Diagnosis: Yes NIH Stroke Scale: Total 1 Date Last Known Well: 12/04/17 Symptom Start Date: 12/04/17 tPA Risk/Benefit discussion I have discussed the risks, benefits, and alternatives of Alteplase treatment including: - If given promptly, can resolve or have major improvement in stroke symptoms. - Bleeding (hemorrhage) is the most common risk that can occur. - Bleeding may occur into the brain and cause~care home serious disability~ including - this is rare, affecting about 1% of patients. - Alternative treatments with proven benefit for patients with stroke include aspirin and care in a specialized unit where staff members pay careful attention to a variety of basic aspects of care. tPA given? No Reason tPA not ordered Medication Refused (neuro rec no tpa) Swallow Evaluation Not Applicable VTE (View Protocol) VTE Risk Factors Age>40 No Mechanical VTE Prophylaxis d/t N/A MechProphylax Ordered No VTE Pharm Prophylaxis d/t Bleeding (Active) Sepsis (View protocol) Sepsis Present: No If YES complete Sepsis Event Note If YES complete Sepsis Event Note Brandon PACHECO,[place] 12/08/17 2206: General Information and HPI Allergies/Medications Home Med list Amlodipine Besylate (Norvasc) 5 MG TABLET 1 TAB PO DAILY HTN (Reported) Atorvastatin Calcium (Lipitor) 80 MG TABLET 1 TAB PO DAILY cholesterol Celecoxib 200 MG CAPSULE 1 CAP PO BID PAIN (Reported) Cholecalciferol (Vitamin D3) 1,000 UNIT TABLET 1 TAB PO DAILY VITAMIN SUPPORT (Reported) Cyanocobalamin (Vitamin B-12) 1,000 MCG TABLET 1 TAB PO DAILY VITAMIN SUPPORT (Reported) Metformin HCl 500 MG TABLET 1 TAB PO QPM DM (Reported) Multivit-Min/FA/Lycopen/Lutein (Centrum Silver Tablet) 0.4 MG-300 MCG-250 MCG TABLET 1 TAB PO DAILY VITAMIN SUPPORT (Reported) Pregabalin (Lyrica) 75 MG CAPSULE 1 CAP PO BID NEUROPATHY (Reported) Tamsulosin HCl 0.4 MG CAP.ER.24H 1 CAP PO DAILY PROSTATE (Reported) Tramadol HCl 50 MG TABLET 1 TAB PO Q6P PRN PAIN (Reported) Warfarin Sodium (Coumadin) 7.5 MG TABLET 1 TAB PO DAILY BLOOD THINNER ( Reported) Core Measures/Misc (11/28) Cerebrovascular Accident CVA/TIA Diagnosis: Yes NIH Stroke Scale: Total 2 Date Last Known Well: 12/02/17 Time Last Known Well: 1999 Symptom Start Date: 12/03/17 tPA Risk/Benefit discussion I have discussed the risks, benefits, and alternatives of Alteplase treatment including: - If given promptly, can resolve or have major improvement in stroke symptoms. - Bleeding (hemorrhage) is the most common risk that can occur. - Bleeding may occur into the brain and cause~care home serious disability~ including - this is rare, affecting about 1% of patients. - Alternative treatments with proven benefit for patients with stroke include aspirin and care in a specialized unit where staff members pay careful attention to a variety of basic aspects of care. Not a candidate for tPA tPA given? No Reason tPA not ordered Medical Contraindication Swallow Evaluation Pass Current/Past Hx AFib/AFlutter Yes No Antithrombotic d/t Active Bleeding No Anticoagulant d/t Medical Contraindication Sepsis (View protocol) If YES complete Sepsis Event Note If YES complete Sepsis Event Note Resident Review Statement Resident Statement: examined this patient, discussed with management intern, agreed with management intern, discussed with family, reviewed EMR data (avail), discussed with nursing , discussed with case mgmt, reviewed images, amended to note Other Findings: Patient is an 52-year-old male with past medical history significant for A. fib on warfarin, JERMAN CPAP, HTN, HLD, bilateral lower extremity neuropathy, lower back pain on steroid injections presented to [facility] after being sent for Dr. Fernández for concerns of decreased vision on his right side. Patient started experiencing symptoms 5 days ago. He was recently off anticoagulation for steroid shot to his back for 5 days restarted on dec 02. He had apparently some confusion, headache, chills which continued without any progression. He does have unsteadiness on his feet, some lightheadedness and fatigue at baseline which remain stable. Had an episode of difficulty driving when he is taking a turn and unable to control it. Patient lost his brother recently and his son is going through a divorce and has a lot of stressful events lately. Vital signs at presentation afebrile, heart rate 97, blood pressure 150/70 mmHg, saturating well on room air. Physical examination is significant for type hemianopsia, normal strength, sensation, other cranial loss intact. Lungs clear, heart S1-S2 normal. Labs are significant for INR 2.16, crystals in urine, BUN 21. MRI consistent with left occipital enhancement and petechial hemorrhage which are consistent with subacute infarction. Evaluation Patient sustained subacute infarction 5 days ago and remained without any progression so far. I'm concerned about small hemorrhage in the brain in the setting of INR of 2.16. I would certainly want to watch him overnight in ICU with an NIH scale of every 1 hour. Patient received 1 dose of aspirin. He was recently off anticoagulation for a steroid injection to his back pain. Plan Admit to ICU Subacute infarction of left occipital lobe * Atorvastatin 80mg daily * Hold all anticoagulation - including aspirin, warfarin * ECHO, carotid doppler * NIH Q1hr * PT/speech * Neurochecks * ?Permissive HTN JERMAN on CPAP * TRC * Nocturnal CPAP Peripheral neuropathy: continue lyrica 75mg BID chronic Low back pain: Steroid injections Nonhodgkins lymphoma: in remission HLD: started on atorvastatin HTN: hold amlod in the setting of permissive hypertension DVT prophylaxis ALPS Code status Full code Hussein PACHECO,Dick 12/08/17 2236: Core Measures/Misc (11/28) Sepsis (View protocol) If YES complete Sepsis Event Note If YES complete Sepsis Event Note Attending MD Review Statement Attending Statement Attending MD Statement: examined this patient, discuss w/resident/PA/OFFICE AUDITOR, agreed w/resident/PA/OFFICE AUDITOR Attending Assessment/Plan: Patient is seen and examined independently by me. Care plan discussed with medical insurance collector and/or resident. I agree with the physical exam findings and plan of care as outlined above with the following changes and additions. 77 yo M history of A fib on Coumadin, HTN, DM, NHL s/p chemotherapy, peripheral neuropathy, chronic back pain, sleep apnea on CPAP, presents with loss of peripheral vision in right eye. Patient had hold Coumadin for 1 week for spinal epidural injection on 12/02, he resumed his Coumadin on 12/02 evening. His INR is now 2.16. 5 days ago, he had chills, confusion, lightheadedness and loss of right peripheral vision. His chills, confusion and lightheadedness lasted just one day but he had headache the next day. His right peripheral vision loss persists. He denies other visual acuity changes, chest pain, SOB, palpitation, weakness or numbness. On exam, heart: irreg, S1S2, no murmur. Neuro exam significant for right peripheral hemianopsia. In the ED, INR 2.16. Troponin <0.01. MRI brain shows subacute left occipital infarct with petechial hemorrhage. EKG shows A fib at [address]-T changes when compares with previous EKG. Patient is admitted as inpatient to ICU for subacute left occipital infarct with petechial hemorrhage. Neuro check q1h. Hold ASA and Coumadin for now. Atorvastatin 80 mg daily. Monitor INR. Cardiac monitoring. Echocardiogram. Carotid US. Neurology consult. Signed: Dick Savage MD FACP
[2017-12-08 22:33] VITALS: BP 140/70
[2017-12-09] VITALS: BP 150/80
[2017-12-09 04:56] LABS: ABSOLUTE BASOPHIL COUNT 0 /CUMM (0.0-0.2); ABSOLUTE EOSINOPHIL COUNT 0.2 /CUMM (0.0-0.7); ABSOLUTE GRANULOCYTE CT 4.5 /CUMM (1.4-6.5); ABSOLUTE LYMPH COUNT 2.5 /CUMM (1.2-3.4); ABSOLUTE MONOCYTE COUNT 0.6 /CUMM (0.10-0.60); BASOPHIL % 0.3 % (0.0-2.0); EOSINOPHIL % 2.2 % (0-5); GRANULOCYTE % 57.8 % (42.2-75.2); HEMATOCRIT 41.8 % (42-52); MEAN CORPUSCULAR HGB 30.3 PG (27.0-31.0); MEAN CORPUSCULAR HGB CONC 33.1 G/DL (33.0-37.0); MEAN CORPUSCULAR VOLUME 91.4 FL (80.0-94.0); MEAN PLATELET VOLUME 8.3 FL (7.4-10.4); PLATELET COUNT 174 /CUMM (130-400); RBC DISTRIBUTION WIDTH 13.6 % (11.5-14.5); RED BLOOD CELL CT 4.57 /CUMM (4.70-6.10); WHITE BLOOD CELL COUNT 7.7 /CUMM (4.8-10.8)
[2017-12-09 05:15] LABS: PT 22.5 SEC (9.4-12.5)
--- NOTE | 2017-12-09 07:51 | ULTRASOUND REPORT ---
EXAMINATION: DUPLEX BILATERAL CAROTID ULTRASOUND CLINICAL INFORMATION: TIA with vision loss and syncope COMPARISON: None. TECHNIQUE: Duplex bilateral carotid US was performed using real-time ultrasound and Doppler techniques (integrating B-mode 2D vascular images, Doppler spectral analysis and color flow Doppler imaging). These techniques were utilized to interrogate the extracranial carotid and vertebral arteries bilaterally. The degree of stenosis is based off criteria similar to NASCET. FINDINGS: 1. On the right: No plaque is present at the carotid bifurcation and all velocity measurements are normal and do not suggest a stenosis of greater than 50% diameter reduction in the right ICA. The vertebral artery is patent demonstrating antegrade flow. The external carotid on the right shows no significant stenosis. 2. On the left: Plaque is present at the carotid bifurcation but velocity measurements are normal and do not suggest a stenosis of greater than 50% diameter reduction in the left ICA. The vertebral artery is patent demonstrating antegrade flow. The external carotid artery on the left shows no significant stenosis. IMPRESSION: There is plaque present in the left internal carotid artery with normal velocities consistent with a minimal 0-49% stenosis. The right side is normal with no plaque seen.
[2017-12-09 08:00] VITALS: BP 130/80
--- NOTE | 2017-12-09 08:12 | Cons- CRCU ---
Dre Carrillo 12/09/17 0812: General Information and HPI Consulting Request Date of Consult: 12/09/17 Requested By: Dr. Dick Savage Reason for Consult: Left occipital lobe infarct, patient requiring neuro check Q1 hour Source of Information: patient Exam Limitations: no limitations History of Present Illness: Mr. Mcnair is a 77-year-old male with a past medical history of atrial fibrillation on Coumadin, obstructive sleep apnea on CPAP, hypertension,, chronic lower back pain, bilateral lower extremity peripheral neuropathy, 2 times survivor of non-Hodgkin's lymphoma (last chemo 6 years ago). He is presenting to the emergency department with a approximately 5-day history of decreased right temporal vision, difficulty driving, right upper extremity weakness. Patient states he has had not taken his Coumadin since 12/02/2017 because he was scheduled to undergo a epidural for chronic lower back pain on , patient states his neurological symptoms had began on the however he had been reluctant to come to the hospital. Allergies/Medications Allergies: Coded Allergies: shrimp (Severe, ANAPHYLAXIS 09/17/16) Home Med List: Amlodipine Besylate (Norvasc) 5 MG TABLET 1 TAB PO DAILY HTN (Reported) Celecoxib 200 MG CAPSULE 1 CAP PO BID PAIN (Reported) Cholecalciferol (Vitamin D3) 1,000 UNIT TABLET 1 TAB PO DAILY VITAMIN SUPPORT (Reported) Cyanocobalamin (Vitamin B-12) 1,000 MCG TABLET 1 TAB PO DAILY VITAMIN SUPPORT (Reported) Metformin HCl 500 MG TABLET 1 TAB PO QPM DM (Reported) Multivit-Min/FA/Lycopen/Lutein (Centrum Silver Tablet) 0.4 MG-300 MCG-250 MCG TABLET 1 TAB PO DAILY VITAMIN SUPPORT (Reported) Pravastatin Sodium (Pravachol) 40 MG TABLET 1 TAB PO DAILY CHOLESTEROL ( Reported) Pregabalin (Lyrica) 75 MG CAPSULE 1 CAP PO BID NEUROPATHY (Reported) Tamsulosin HCl 0.4 MG CAP.ER.24H 1 CAP PO DAILY PROSTATE (Reported) Tramadol HCl 50 MG TABLET 1 TAB PO Q6P PRN PAIN (Reported) Warfarin Sodium (Coumadin) 7.5 MG TABLET 1 TAB PO DAILY BLOOD THINNER ( Reported) Current Medications: Current Medications Sig/Yong Start time Last Medication Dose Route Stop Time Status Admin Acetaminophen 650 MG Q6P PRN 12/09 0800 AC PO Acetaminophen 1,000 MG Q6P PRN 12/09 0800 AC IV Aspirin 81 MG DAILY 12/09 0900 DC 12/08 PO 2011 Aspirin 0 .STK-MED ONE 12/08 2012 DC PO Atorvastatin Calcium 80 MG 1700 12/08 1930 AC 12/08 PO 2012 Cyanocobalamin 1,000 MCG DAILY 12/09 0900 AC 12/09 PO 0843 Insulin Aspart 0 TIDAC 12/09 1200 AC SC Multivitamins 1 TAB DAILY 12/09 0900 AC 12/09 PO 0843 Pregabalin 75 MG BID 12/08 2207 AC 12/09 PO 0844 Tamsulosin HCl 0.4 MG DAILY 12/09 0900 AC 12/09 PO 0843 Tramadol HCl 50 MG Q6P PRN 12/08 2215 AC PO Review of Systems Review of Systems Constitutional: Reports: see HPI. 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 Home Who Do You Live With? spouse Services at Home: None Primary Language: Luxembourger Smoking Status: Former Smoker (quit 50 yrs ago) ETOH Use: occasional use Illicit Drug Use: denies illicit drug use Employment History Employment: Employed Profession/Employer: [employer] Exam & Diagnostic Data Last 24 Hrs of Vital Signs/I&O Vital Signs Date Time Temp Pulse Resp B/P B/P Pulse O2 O2 Flow FiO2 Mean Ox Delivery Rate 12/09 0843 130/80 12/09 0800 97.8 62 21 130/80 96 12/09 0756 78 96 12/09 0612 53 93 12/09 0217 51 12/09 0028 85 95 12/09 0000 97 Room Air 12/09 0000 35.8 63 24 150/80 97 Room Air 12/08 2233 97.7 74 20 140/70 95 Room Air 12/08 2208 Room Air 12/08 2058 98.0 88 20 143/81 95 Room Air 12/08 1810 70 20 160/86 98 12/08 1627 76 20 138/75 98 Room Air 12/08 1308 98.0 82 18 180/89 99 12/08 1200 98.0 88 18 150/71 100 Intake & Output 12/09 1600 12/09 0800 12/09 0000 Intake Total 100 Output Total 325 Balance 100 -325 Intake, Oral 100 Output, Urine 325 Patient 282 lb 281 lb Weight Weight Bed scale Bed scale Measurement Method Physical Exam General Appearance: well developed/nourished, no apparent distress Head: atraumatic, normal appearance Eyes: Bilateral: PERRL, EOMI. 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 Last 48 Hrs of Labs/Tyrone: Laboratory Tests 12/09/17 0400: Anion Gap 10, Estimated GFR > 60, BUN/Creatinine Ratio 22.5, Triglycerides 159 H, Cholesterol 121, LDL Cholesterol, Calc 48 L, HDL Cholesterol 42, Cholesterol /HDL Ratio 3, PT 22.5 H, INR 2.05 H, CBC w Diff NO MAN DIFF REQ, RBC 4.57 L, MCV 91.4, MCH 30.3, MCHC 33.1, RDW 13.6, MPV 8.3, Gran % 57.8, Lymphocytes % 32.2, Monocytes % 7.5, Eosinophils % 2.2, Basophils % 0.3, Absolute Granulocytes 4.5, Absolute Lymphocytes 2.5, Absolute Monocytes 0.6, Absolute Eosinophils 0.2, Absolute Basophils 0 12/08/17 1138: Urine Opiates Screen < 100, Methadone Screen < 40, Barbiturate Screen < 60, Ur Phencyclidine Scrn < 6.00, Amphetamines Screen < 100, U Benzodiazepines Scrn < 85, Urine Cocaine Screen < 50, Urine Cannabis Screen < 5.00, Urine Color YEL, Urine Clarity HAZY H, Urine pH 6.0, Ur Specific [place] >= 1.030, Urine Protein NEG, Urine Ketones NEG, Urine Nitrite NEG, Urine Bilirubin NEG, Urine Urobilinogen 0.2, Ur Leukocyte Esterase NEG, Ur Microscopic SEDIMENT EXAMINED, Urine RBC 1-3, Urine WBC RARE, Ur Epithelial Cells FEW, Urine Crystals 4+ CA OX H, Urine Bacteria FEW H, Urine Hemoglobin SMALL H, Urine Glucose NEG 12/08/17 1002: Anion Gap 10, Estimated GFR > 60, BUN/Creatinine Ratio 23.3, Glucose 127 H, Calcium 9.1, Total Bilirubin 0.8, AST 35, ALT 41, Alkaline Phosphatase 85, Troponin I < 0.01, Total Protein 7.2, Albumin 4.4, Globulin 2.8, Albumin/ Globulin Ratio 1.6, PT 23.7 H, INR 2.16 H, APTT 43 H, CBC w Diff NO MAN DIFF REQ, RBC 4.43 L, MCV 90.1, MCH 30.8, MCHC 34.2, RDW 13.6, MPV 8.1, Gran % 59.9, Lymphocytes % 30.5, Monocytes % 7.3, Eosinophils % 2.0, Basophils % 0.3, Absolute Granulocytes 4.9, Absolute Lymphocytes 2.5, Absolute Monocytes 0.6, Absolute Eosinophils 0.2, Absolute Basophils 0 Assessment/Plan CRCU Impression/Plan: Mr. Mcnair is a 77-year-old male with a past medical history of atrial fibrillation on Coumadin, obstructive sleep apnea on CPAP, hypertension,, chronic lower back pain, bilateral lower extremity peripheral neuropathy, 2 times survivor of non-Hodgkin's lymphoma (last chemo 6 years ago). He is presenting to the emergency department with a approximately 5-day history of decreased right temporal vision, difficulty driving, right upper extremity weakness. Patient states he has had not taken his Coumadin since 12/02/2017 because he was scheduled to undergo a epidural for chronic lower back pain on , patient states his neurological symptoms had began on the . He states his symptoms have improved, and is interested in going back to work. Problem list: 1. 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 History of hypertension, diabetes mellitus type 2 3. History of A. fib, has not been on Coumadin since 12/02/2017 5. History of sleep apnea on CPAP Respiratory: -will continue CPAP at night Infectious: Stable Cardiac: hypertension will treat if SBP greater than 180 Hematology: Stable Metabolic: Stable Alimentary: patient on consistent carbohydrate 3 diet Neuro: hemorrhage, with resultant right lateral visual field loss after discontinuing warfarin for A. fib on 12/02/2017 artery with normal flow velocities consistent with a minimal 0-49% stenosis cleared by neurology we will transfer back to telemetry. - PT evaluation DVT PPx: ALPS Diet: Consistent Carb 3 Code Status: Full Code Consult Acknowledgment - Thank you for your consult request. Eugenia Caldera MD 12/09/17 0948: Assessment/Plan CRCU Other Findings/Comments: I have personally seen and examined the patient, and agree with the resident's assessment and plan as detailed above. Briefly, the patient is a 77-year-old male with a past medical history significant for atrial fibrillation on Coumadin , hypertension, diabetes, NHL status post chemotherapy, peripheral neuropathy, chronic back pain, and sleep apnea on CPAP. The patient presented to the emergency department with complaints of peripheral vision loss in the right eye. Of note, the patient held his Coumadin for 1 week prior to spinal epidural injection and 12/02/2017 and he resumed his Coumadin that evening. On admission, his INR was 2.16. The patient had no other significant complaints. Further testing demonstrated a positive MRI of the brain that showed a subacute left occipital infarct with petechial hemorrhage. The patient was in atrial fibrillation with no acute ST-T changes. He was admitted to the critical care unit for subacute left occipital infarct with petechial hemorrhage. He is receiving every hour neuro checks. Aspirin and Coumadin have been held. High- dose statins have been implemented. He will have an echocardiogram. A carotid ultrasound was done and is pending. The patient will be seen by both cardiology and neurology today for further recommendations. Of note, the patient's INR was not reversed prior to admission to the critical care unit. Will follow up with neurology on this issue this morning. We will also perform repeat CT scanning. DVT prophylaxis with Alps at all times. I discussed the plan of care with the housestaff in detail. I asked him to contact me should the patient's condition change. Consult Acknowledgment - Thank you for your consult request.
--- NOTE | 2017-12-09 11:04 | CT SCAN REPORT ---
EXAMINATION: CT HEAD WITHOUT CONTRAST CLINICAL INFORMATION: Left occipital lobe infarction MRI. Assess for intracranial hemorrhage. COMPARISON: MRI scan 12/08/2017. TECHNIQUE: Contiguous axial imaging was performed from the skull base to vertex without intravenous administration of contrast. DLP: 630.5 mGy-cm FINDINGS: There is an area of low attenuation in the left parietal lobe, corresponding to the area of acute infarction demonstrated on prior imaging. Linear mildly increased density is most consistent with petechial hemorrhage versus residual viable cortex. No abnormal mass effect or midline shift is seen. Nina to white matter differentiation is well preserved. No extra-axial fluid collections are identified. The ventricles and sulci are slightly commensurately prominent consistent with mild volume loss. There are low attenuation areas in the deep white matter consistent with chronic microvascular ischemic disease. There have been bilateral lens extractions. There are no acute osseous findings. There are degenerative changes of the bilateral temporomandibular joints. The mastoid air cells are well-aerated. There is mucoperiosteal thickening in the bilateral ethmoid and right frontal sinuses. The nasal septum is deviated to the left and there is a left-sided bony nasal septal spur. The mastoid air cells and visualized portions of the paranasal sinuses are well aerated. IMPRESSION: 1. There are sequelae of an infarct in the left occipital lobe, demonstrated on prior imaging. There is no evidence of new acute hemorrhage. 2. There is mild diffuse volume loss and there are chronic microvascular ischemic changes.
--- NOTE | 2017-12-09 12:19 | Cons- Cardiology ---
General Information and HPI Consulting Request Date of Consult: 12/09/17 Requested By: Dick Savage MD Reason for Consult: Atrial fibrillation Source of Information: patient, old records History of Present Illness: This is a pleasant 77-year-old male with a past medical history of persistent atrial fibrillation on Coumadin, obstructive sleep apnea on CPAP, hypertension, peripheral neuropathy, chronic low back pain, lymphoma, and coronary artery disease by nuclear stress test who presents with a chief complaint of lightheadedness, chills, and right-sided visual loss; the patient recently had epidural injection for lower back pain and his Coumadin had been held temporarily in anticipation of that procedure; the patient denies any recent episodes of chest pain, increasing dyspnea, palpitations, or syncope. He does report increased emotional stress recently as his brother recently and his son is going through a divorce. He denies slurring of speech; on my interview today he continued to have right-sided peripheral visual loss per his report. Denies any bleeding issues. Allergies/Medications Allergies: Coded Allergies: shrimp (Severe, ANAPHYLAXIS 09/17/16) Home Med List: Amlodipine Besylate (Norvasc) 5 MG TABLET 1 TAB PO DAILY HTN (Reported) Celecoxib 200 MG CAPSULE 1 CAP PO BID PAIN (Reported) Cholecalciferol (Vitamin D3) 1,000 UNIT TABLET 1 TAB PO DAILY VITAMIN SUPPORT (Reported) Cyanocobalamin (Vitamin B-12) 1,000 MCG TABLET 1 TAB PO DAILY VITAMIN SUPPORT (Reported) Metformin HCl 500 MG TABLET 1 TAB PO QPM DM (Reported) Multivit-Min/FA/Lycopen/Lutein (Centrum Silver Tablet) 0.4 MG-300 MCG-250 MCG TABLET 1 TAB PO DAILY VITAMIN SUPPORT (Reported) Pravastatin Sodium (Pravachol) 40 MG TABLET 1 TAB PO DAILY CHOLESTEROL ( Reported) Pregabalin (Lyrica) 75 MG CAPSULE 1 CAP PO BID NEUROPATHY (Reported) Tamsulosin HCl 0.4 MG CAP.ER.24H 1 CAP PO DAILY PROSTATE (Reported) Tramadol HCl 50 MG TABLET 1 TAB PO Q6P PRN PAIN (Reported) Warfarin Sodium (Coumadin) 7.5 MG TABLET 1 TAB PO DAILY BLOOD THINNER ( Reported) Current Medications: Current Medications Sig/Yong Start time Last Medication Dose Route Stop Time Status Admin Acetaminophen 650 MG Q6P PRN 12/09 0800 AC PO Acetaminophen 1,000 MG Q6P PRN 12/09 0800 AC IV Aspirin 81 MG DAILY 12/09 0900 DC 12/08 PO 2011 Aspirin 0 .STK-MED ONE 12/08 2012 DC PO Atorvastatin Calcium 80 MG 1700 12/08 1930 AC 12/08 PO 2011 Cyanocobalamin 1,000 MCG DAILY 12/09 0900 AC 12/09 PO 0843 Insulin Aspart 0 TIDAC 12/09 1200 AC SC Multivitamins 1 TAB DAILY 12/09 0900 AC 12/09 PO 0843 Pregabalin 75 MG BID 12/08 2207 AC 12/09 PO 0844 Tamsulosin HCl 0.4 MG DAILY 12/09 0900 AC 12/09 PO 0843 Tramadol HCl 50 MG Q6P PRN 12/08 2215 AC PO Review of Systems Review of Systems: Review of systems as per HPI. The remainder of a 10 point review of systems was reviewed and was otherwise negative. 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 Home Who Do You Live With? spouse Services at Home: None Primary Language: Cypriot Smoking Status: Former Smoker (quit 50 yrs ago) ETOH Use: occasional use Illicit Drug Use: denies illicit drug use Employment History Employment: Employed Profession/Employer [employer] [facility] Exam & Diagnostic Data Vital Signs and I&O Vital Signs Date Time Temp Pulse Resp B/P B/P Pulse O2 O2 Flow FiO2 Mean Ox Delivery Rate 12/09 1126 Room Air 12/09 0843 130/80 12/09 0800 97.8 62 21 130/80 96 12/09 0756 78 96 12/09 0612 53 93 12/09 0217 51 12/09 0028 85 95 12/09 0000 97 Room Air 12/09 0000 35.8 63 24 150/80 97 Room Air 12/08 2233 97.7 74 20 140/70 95 Room Air 12/08 2208 Room Air 12/08 2058 98.0 88 20 143/81 95 Room Air 12/08 1810 70 20 160/86 98 12/08 1627 76 20 138/75 98 Room Air 12/08 1308 98.0 82 18 180/89 99 Intake & Output 12/09 0812/09 0000 12/08 0000 Intake Total 100 0 Output Total 325 Balance 100 -325 0 Intake, Oral 100 0 Output, Urine 325 Patient 282 lb 281 lb 280 lb Weight Weight Bed scale Bed scale Reported by Patient Measurement Method Physical Exam: General: no apparent distress. Alert. Eyes: No obvious scleral icterus. HEENT: No jugular venous distention or abnormal jugular venous pulsations. Cardiovascular: Normal intensity S1/S2. Irregular Respiratory: Lungs clear to auscultation bilaterally. Abdomen: Soft, nontender with no guarding or rebound tenderness. Musculoskeletal: No clubbing or cyanosis noted Skin: warm Neurologic: Normal speech Lymph: No gross lymphadenopathy. Labs/Tyrone Results: Laboratory Tests 12/09 12/08 0400 1138 Chemistry Sodium (137 - 145 mmol/L) 140 Potassium (3.5 - 5.1 mmol/L) 4.2 Chloride (98 - 107 mmol/L) 107 Carbon Dioxide (22 - 30 mmol/L) 24 Anion Gap (5 - 16) 10 BUN (9 - 20 mg/dL) 18 Creatinine (0.7 - 1.2 mg/dL) 0.8 Estimated GFR (>60 ml/min) > 60 BUN/Creatinine Ratio (7 - 25 %) 22.5 Triglycerides (<150 mg/dL) 159 H Cholesterol (< 200 MG/DL) 121 LDL Cholesterol, Calc (65 - 129 mg/dL) 48 L HDL Cholesterol (40 - 60 mg/dL) 42 Cholesterol/HDL Ratio (0.00 - 4.88 %) 3 Coagulation PT (9.4 - 12.5 SEC) 22.5 H INR (0.90 - 1.17) 2.05 H Hematology CBC w Diff NO MAN DIFF REQ WBC (4.8 - 10.8 /CUMM) 7.7 RBC (4.70 - 6.10 /CUMM) 4.57 L Hgb (14.0 - 18.0 G/DL) 13.8 L Hct (42 - 52 %) 41.8 L MCV (80.0 - 94.0 FL) 91.4 MCH (27.0 - 31.0 PG) 30.3 MCHC (33.0 - 37.0 G/DL) 33.1 RDW (11.5 - 14.5 %) 13.6 Plt Count (130 - 400 /CUMM) 174 MPV (7.4 - 10.4 FL) 8.3 Gran % (42.2 - 75.2 %) 57.8 Lymphocytes % (20.5 - 51.1 %) 32.2 Monocytes % (1.7 - 9.3 %) 7.5 Eosinophils % (0 - 5 %) 2.2 Basophils % (0.0 - 2.0 %) 0.3 Absolute Granulocytes (1.4 - 6.5 /CUMM) 4.5 Absolute Lymphocytes (1.2 - 3.4 /CUMM) 2.5 Absolute Monocytes (0.10 - 0.60 /CUMM) 0.6 Absolute Eosinophils (0.0 - 0.7 /CUMM) 0.2 Absolute Basophils (0.0 - 0.2 /CUMM) 0 Toxicology Urine Opiates Screen (>2000 NG/ML) < 100 Methadone Screen (>300 NG/ML) < 40 Barbiturate Screen (>200 NG/ML) < 60 Ur Phencyclidine Scrn (>25 NG/ML) < 6.00 Amphetamines Screen (>1000 NG/ML) < 100 U Benzodiazepines Scrn (>200 NG/ML) < 85 Urine Cocaine Screen (>300 NG/ML) < 50 Urine Cannabis Screen (>50 NG/ML) < 5.00 Urines Urine Color (YEL,AMB,STR) YEL Urine Clarity (CLEAR) HAZY H Urine pH (5.0 - 8.0) 6.0 Ur Specific [place] (1.001 - 1.035) >= 1.030 Urine Protein (NEG,<30 MG/DL) NEG Urine Ketones (NEG) NEG Urine Nitrite (NEG) NEG Urine Bilirubin (NEG) NEG Urine Urobilinogen (0.1 - 1.0 EU/dl) 0.2 Ur Leukocyte Esterase (NEG) NEG Ur Microscopic SEDIMENT EXAMINED Urine RBC (0 - 5 /HPF) 1-3 Urine WBC (0 - 2 /HPF) RARE Ur Epithelial Cells (NONE,FEW) FEW Urine Crystals 4+ CA OX H Urine Bacteria (NEG/NONE) FEW H Urine Hemoglobin (NEG) SMALL H Urine Glucose (N MG/DL) NEG 12/08 1002 Chemistry Sodium (137 - 145 mmol/L) 139 Potassium (3.5 - 5.1 mmol/L) 4.5 Chloride (98 - 107 mmol/L) 105 Carbon Dioxide (22 - 30 mmol/L) 24 Anion Gap (5 - 16) 10 BUN (9 - 20 mg/dL) 21 H Creatinine (0.7 - 1.2 mg/dL) 0.9 Estimated GFR (>60 ml/min) > 60 BUN/Creatinine Ratio (7 - 25 %) 23.3 Glucose (65 - 99 mg/dL) 127 H Calcium (8.4 - 10.2 mg/dL) 9.1 Total Bilirubin (0.2 - 1.3 mg/dL) 0.8 AST (17 - 59 U/L) 35 ALT (21 - 72 U/L) 41 Alkaline Phosphatase (< 127 U/L) 85 Troponin I (<0.11 ng/ml) < 0.01 Total Protein (6.3 - 8.2 g/dL) 7.2 Albumin (3.5 - 5.0 g/dL) 4.4 Globulin (1.9 - 4.2 gm/dL) 2.8 Albumin/Globulin Ratio (1.1 - 2.2 %) 1.6 Coagulation PT (9.4 - 12.5 SEC) 23.7 H INR (0.90 - 1.17) 2.16 H APTT (25 - 37 SEC) 43 H Hematology CBC w Diff NO MAN DIFF REQ WBC (4.8 - 10.8 /CUMM) 8.1 RBC (4.70 - 6.10 /CUMM) 4.43 L Hgb (14.0 - 18.0 G/DL) 13.7 L Hct (42 - 52 %) 39.9 L MCV (80.0 - 94.0 FL) 90.1 MCH (27.0 - 31.0 PG) 30.8 MCHC (33.0 - 37.0 G/DL) 34.2 RDW (11.5 - 14.5 %) 13.6 Plt Count (130 - 400 /CUMM) 174 MPV (7.4 - 10.4 FL) 8.1 Gran % (42.2 - 75.2 %) 59.9 Lymphocytes % (20.5 - 51.1 %) 30.5 Monocytes % (1.7 - 9.3 %) 7.3 Eosinophils % (0 - 5 %) 2.0 Basophils % (0.0 - 2.0 %) 0.3 Absolute Granulocytes (1.4 - 6.5 /CUMM) 4.9 Absolute Lymphocytes (1.2 - 3.4 /CUMM) 2.5 Absolute Monocytes (0.10 - 0.60 /CUMM) 0.6 Absolute Eosinophils (0.0 - 0.7 /CUMM) 0.2 Absolute Basophils (0.0 - 0.2 /CUMM) 0 Diagnostic Data EKG Results Tracing was personally reviewed and shows atrial fibrillation at 71 bpm with left axis deviation Other Results Carotid Doppler There is plaque present in the left internal carotid artery with normal velocities consistent with a minimal 0-49% stenosis. The right side is normal with no plaque seen. Telemetry tracings were personally reviewed and show atrial fibrillation MRI Mildly expansile gyriform T2/FLAIR hyperintensity in the left occipital lobe with associated enhancement and petechial hemorrhage. The imaging findings interpreted in conjunction with the prior head CT are most compatible with a subacute infarct. No underlying mass lesion is seen. The remainder of the brain parenchyma is within normal limits allowing for moderate small vessel ischemic changes in the cerebral white matter and central dejon. Assessment/Plan Assessment/Plan 1. Subacute CVA; was recently off Coumadin for epidural injection 2. Persistent atrial fibrillation with some underlying conduction disease 3. Obstructive sleep apnea on CPAP 4. Hypertension 5. Chronic low back pain and peripheral neuropathy 6. History of lymphoma 7. History of coronary artery disease by nuclear stress test The patient presents with evidence of subacute CVA in the setting of recently being off Coumadin temporarily for spinal injection; follow-up neurology recommendations regarding anticoagulation in the setting of the CVA with ? petechial bleed; recommend obtaining an echocardiogram. In the future he would likely require bridging therapy if anticoagulation needs to be held; another potential option would be a Watchman device in the future. Srinivas Levi MD [facility] Consult Acknowledgment - Thank you for your consult request.
--- NOTE | 2017-12-09 15:46 | Cons- Neurology ---
General Information and HPI Consulting Request Date of Consult: 12/09/17 Requested By: Dick Savage MD Source of Information: patient, family Exam Limitations: no limitations History of Present Illness: 77-year-old male with history of atrial fibrillation Patient admitted after he noted visual field loss on the right side He had visited his physician yesterday due to headache and visual difficulty and was referred to hospital emergency room with CT revealed that he had an occipital stroke Symptoms began probably 5 days ago when he noted headache and lightheadedness and chills The week prior he had stopped Coumadin for 5 days for epidural injection for chronic low back pain and restarted Coumadin on 12/02 He did not note any focal weakness or paresthesia or diplopia Symptoms have remained essentially static Allergies/Medications Allergies: Coded Allergies: shrimp (Severe, ANAPHYLAXIS 09/17/16) Home Med List: Amlodipine Besylate (Norvasc) 5 MG TABLET 1 TAB PO DAILY HTN (Reported) Celecoxib 200 MG CAPSULE 1 CAP PO BID PAIN (Reported) Cholecalciferol (Vitamin D3) 1,000 UNIT TABLET 1 TAB PO DAILY VITAMIN SUPPORT (Reported) Cyanocobalamin (Vitamin B-12) 1,000 MCG TABLET 1 TAB PO DAILY VITAMIN SUPPORT (Reported) Metformin HCl 500 MG TABLET 1 TAB PO QPM DM (Reported) Multivit-Min/FA/Lycopen/Lutein (Centrum Silver Tablet) 0.4 MG-300 MCG-250 MCG TABLET 1 TAB PO DAILY VITAMIN SUPPORT (Reported) Pravastatin Sodium (Pravachol) 40 MG TABLET 1 TAB PO DAILY CHOLESTEROL ( Reported) Pregabalin (Lyrica) 75 MG CAPSULE 1 CAP PO BID NEUROPATHY (Reported) Tamsulosin HCl 0.4 MG CAP.ER.24H 1 CAP PO DAILY PROSTATE (Reported) Tramadol HCl 50 MG TABLET 1 TAB PO Q6P PRN PAIN (Reported) Warfarin Sodium (Coumadin) 7.5 MG TABLET 1 TAB PO DAILY BLOOD THINNER ( Reported) Current Medications: Current Medications Sig/Yong Start time Last Medication Dose Route Stop Time Status Admin Acetaminophen 650 MG Q6P PRN 12/09 08 AC PO Acetaminophen 1,000 MG Q6P PRN 12/09 0800 AC IV Aspirin 81 MG DAILY 12/09 09 DC 12/08 PO 2011 Aspirin 0 .STK-MED ONE 12/08 2012 DC PO Atorvastatin Calcium 80 MG 1700 12/08 1930 AC 12/08 PO 2011 Cyanocobalamin 1,000 MCG DAILY 12/09 09 AC 12/09 PO 43 Insulin Aspart 0 TIDAC 12/09 1200 AC SC Multivitamins 1 TAB DAILY 12/09 09 AC 12/09 PO 43 Pregabalin 75 MG BID 12/08 2207 AC 12/09 PO 0844 Tamsulosin HCl 0.4 MG DAILY 12/09 09 AC 12/09 PO 43 Tramadol HCl 50 MG Q6P PRN 12/08 221 AC PO Review of Systems Review of Systems: Mild headache No diplopia Weight stable Chronic hearing loss No chest pains No breathing difficulties No abdominal pain Urinary urgency Chronic lower extremity edema No recent fevers or rashes Other systems reviewed negative Past History Travel History Traveled to [place] past 21 day No Medical History Blood Transfusion Hx: Yes Neurological: severe neuropathy EENT: cataracts, hearing loss Cardiovascular: AFIB, hypertension Respiratory: bronchitis Gastrointestinal: DIARRHEA Hepatic: NONE Renal: NONE Musculoskeletal: chronic back pain, spinal stenosis Psychiatric: NONE Endocrine: diabetes Blood Disorders: NONE Cancer(s): melanoma, LYMPHOMA of the spine 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 Home Who Do You Live With? spouse Services at Home: None Primary Language: Hungarian Smoking Status: Former Smoker (quit 50 yrs ago) ETOH Use: occasional use Illicit Drug Use: denies illicit drug use Employment History Employment: Employed Profession/Employer: [employer] Exam & Diagnostic Data Vital Signs and I&O Vital Signs Date Time Temp Pulse Resp B/P B/P Pulse O2 O2 Flow FiO2 Mean Ox Delivery Rate 12/09 1126 Room Air 12/09 0843 130/80 12/09 0800 97.8 62 21 130/80 96 12/09 0756 78 96 12/09 0612 53 93 12/09 0217 51 12/09 0028 85 95 12/09 0000 97 Room Air 12/09 0000 35.8 63 24 150/80 97 Room Air 12/08 2233 97.7 74 20 140/70 95 Room Air 12/08 2209 Room Air 12/089 98.0 88 20 143/81 95 Room Air 12/08 1810 70 20 160/86 98 12/08 1627 76 20 138/75 98 Room Air Intake & Output 12/09 1600 12/09 0800 12/09 0000 Intake Total 600 100 Output Total 800 325 Balance -200 100 -325 Intake, Oral 600 100 Output, Urine 800 325 Patient 282 lb 281 lb Weight Weight Bed scale Bed scale Measurement Method Physical Exam: Alert and oriented Language functions 5 out of 10 span concentration intact Heart sounds normal no carotid bruits distal pulses intact X-ray fluids for pupils reactive fundi benign visual goldsmith grossly intact no facial weakness of atrial sensed was piloting and shows intact hearing is mildly impaired bilaterally Normal tone and strength upper lower extremities No sensory loss upper extremities bilaterally sensory loss light touch lower extremities bilaterally deep tendon reflexes hypoactive throughout Cognitive functions intact upper and lower extremities Walks with a single-point cane with mild imbalance which is chronic Last 48 Hours of Lab Results: Laboratory Tests 12/09 12/08 0400 1138 Chemistry Sodium (137 - 145 mmol/L) 140 Potassium (3.5 - 5.1 mmol/L) 4.2 Chloride (98 - 107 mmol/L) 107 Carbon Dioxide (22 - 30 mmol/L) 24 Anion Gap (5 - 16) 10 BUN (9 - 20 mg/dL) 18 Creatinine (0.7 - 1.2 mg/dL) 0.8 Estimated GFR (>60 ml/min) > 60 BUN/Creatinine Ratio (7 - 25 %) 22.5 Triglycerides (<150 mg/dL) 159 H Cholesterol (< 200 MG/DL) 121 LDL Cholesterol, Calc (65 - 129 mg/dL) 48 L HDL Cholesterol (40 - 60 mg/dL) 42 Cholesterol/HDL Ratio (0.00 - 4.88 %) 3 Coagulation PT (9.4 - 12.5 SEC) 22.5 H INR (0.90 - 1.17) 2.05 H Hematology CBC w Diff NO MAN DIFF REQ WBC (4.8 - 10.8 /CUMM) 7.7 RBC (4.70 - 6.10 /CUMM) 4.57 L Hgb (14.0 - 18.0 G/DL) 13.8 L Hct (42 - 52 %) 41.8 L MCV (80.0 - 94.0 FL) 91.4 MCH (27.0 - 31.0 PG) 30.3 MCHC (33.0 - 37.0 G/DL) 33.1 RDW (11.5 - 14.5 %) 13.6 Plt Count (130 - 400 /CUMM) 174 MPV (7.4 - 10.4 FL) 8.3 Gran % (42.2 - 75.2 %) 57.8 Lymphocytes % (20.5 - 51.1 %) 32.2 Monocytes % (1.7 - 9.3 %) 7.5 Eosinophils % (0 - 5 %) 2.2 Basophils % (0.0 - 2.0 %) 0.3 Absolute Granulocytes (1.4 - 6.5 /CUMM) 4.5 Absolute Lymphocytes (1.2 - 3.4 /CUMM) 2.5 Absolute Monocytes (0.10 - 0.60 /CUMM) 0.6 Absolute Eosinophils (0.0 - 0.7 /CUMM) 0.2 Absolute Basophils (0.0 - 0.2 /CUMM) 0 Toxicology Urine Opiates Screen (>2000 NG/ML) < 100 Methadone Screen (>300 NG/ML) < 40 Barbiturate Screen (>200 NG/ML) < 60 Ur Phencyclidine Scrn (>25 NG/ML) < 6.00 Amphetamines Screen (>1000 NG/ML) < 100 U Benzodiazepines Scrn (>200 NG/ML) < 85 Urine Cocaine Screen (>300 NG/ML) < 50 Urine Cannabis Screen (>50 NG/ML) < 5.00 Urines Urine Color (YEL,AMB,STR) YEL Urine Clarity (CLEAR) HAZY H Urine pH (5.0 - 8.0) 6.0 Ur Specific Grover (1.001 - 1.035) >= 1.030 Urine Protein (NEG,<30 MG/DL) NEG Urine Ketones (NEG) NEG Urine Nitrite (NEG) NEG Urine Bilirubin (NEG) NEG Urine Urobilinogen (0.1 - 1.0 EU/dl) 0.2 Ur Leukocyte Esterase (NEG) NEG Ur Microscopic SEDIMENT EXAMINED Urine RBC (0 - 5 /HPF) 1-3 Urine WBC (0 - 2 /HPF) RARE Ur Epithelial Cells (NONE,FEW) FEW Urine Crystals 4+ CA OX H Urine Bacteria (NEG/NONE) FEW H Urine Hemoglobin (NEG) SMALL H Urine Glucose (N MG/DL) NEG 12/08 1002 Chemistry Sodium (137 - 145 mmol/L) 139 Potassium (3.5 - 5.1 mmol/L) 4.5 Chloride (98 - 107 mmol/L) 105 Carbon Dioxide (22 - 30 mmol/L) 24 Anion Gap (5 - 16) 10 BUN (9 - 20 mg/dL) 21 H Creatinine (0.7 - 1.2 mg/dL) 0.9 Estimated GFR (>60 ml/min) > 60 BUN/Creatinine Ratio (7 - 25 %) 23.3 Glucose (65 - 99 mg/dL) 127 H Calcium (8.4 - 10.2 mg/dL) 9.1 Total Bilirubin (0.2 - 1.3 mg/dL) 0.8 AST (17 - 59 U/L) 35 ALT (21 - 72 U/L) 41 Alkaline Phosphatase (< 127 U/L) 85 Troponin I (<0.11 ng/ml) < 0.01 Total Protein (6.3 - 8.2 g/dL) 7.2 Albumin (3.5 - 5.0 g/dL) 4.4 Globulin (1.9 - 4.2 gm/dL) 2.8 Albumin/Globulin Ratio (1.1 - 2.2 %) 1.6 Coagulation PT (9.4 - 12.5 SEC) 23.7 H INR (0.90 - 1.17) 2.16 H APTT (25 - 37 SEC) 43 H Hematology CBC w Diff NO MAN DIFF REQ WBC (4.8 - 10.8 /CUMM) 8.1 RBC (4.70 - 6.10 /CUMM) 4.43 L Hgb (14.0 - 18.0 G/DL) 13.7 L Hct (42 - 52 %) 39.9 L MCV (80.0 - 94.0 FL) 90.1 MCH (27.0 - 31.0 PG) 30.8 MCHC (33.0 - 37.0 G/DL) 34.2 RDW (11.5 - 14.5 %) 13.6 Plt Count (130 - 400 /CUMM) 174 MPV (7.4 - 10.4 FL) 8.1 Gran % (42.2 - 75.2 %) 59.9 Lymphocytes % (20.5 - 51.1 %) 30.5 Monocytes % (1.7 - 9.3 %) 7.3 Eosinophils % (0 - 5 %) 2.0 Basophils % (0.0 - 2.0 %) 0.3 Absolute Granulocytes (1.4 - 6.5 /CUMM) 4.9 Absolute Lymphocytes (1.2 - 3.4 /CUMM) 2.5 Absolute Monocytes (0.10 - 0.60 /CUMM) 0.6 Absolute Eosinophils (0.0 - 0.7 /CUMM) 0.2 Absolute Basophils (0.0 - 0.2 /CUMM) 0 Imaging/Other Studies: mri: ctIMPRESSION: Mildly expansile gyriform T2/FLAIR hyperintensity in the left occipital lobe with associated enhancement and petechial hemorrhage. The imaging findings interpreted in conjunction with the prior head CT are most compatible with a subacute infarct. No underlying mass lesion is seen. The remainder of the brain parenchyma is within normal limits allowing for moderate small vessel ischemic changes in the cerebral white matter and central dejon. ct: IMPRESSION: 1. There are sequelae of an infarct in the left occipital lobe, demonstrated on prior imaging. There is no evidence of new acute hemorrhage. u/s: IMPRESSION: There is plaque present in the left internal carotid artery with normal velocities consistent with a minimal 0-49% stenosis. The right side is normal with no plaque seen. Assessment/Plan Assessment: Left occipital lobe infarct Diabetes Chronic gait dificulty Recommendations: Continue anticoagulants and statin Stucco Mason to obtain visual goldsmith Patient told to avoid driving until cleared by medical center director and driving school Exercise on a daily basis Appropriate diet knowing patient has diabetes and is on Coumadin Follow-up with senior management consultant regarding risks of stroke when Coumadin is held for procedures Consult Acknowledgment - Thank you for your consult request.
[2017-12-09 16:00] VITALS: BP 140/76
--- NOTE | 2017-12-09 20:05 | ECHOCARDIOGRAM REPORT ---
MIREYA MORRIS Age: 77 : 1940 Gender: M Exam Date: 12/09/2017 12:27 Exam Location: [facility] Ht (in): 74 Wt (lb): 280 BSA: 2.62 BP: 150 / 80 Ordering Physician: Sydney Taylor MD Referring Physician: Sydney Taylor MD Technologist: Gordon Webb NITA Room Number: 110 Indications: Stroke Rhythm: Technical Quality: Technically difficult study FINDINGS Left Ventricle Normal global left ventricular size, wall thickness, systolic function with no obvious regional wall motion abnormalities. Left ventricular ejection fraction is estimated at 55 %. Right Ventricle Normal right ventricular size and function. Right Atrium Mild right atrial dilatation. Left Atrium Mild to moderate left atrial dilatation. Mitral Valve Structurally normal mitral valve. Mild mitral regurgitation. Aortic Valve No aortic stenosis. Trileaflet aortic valve. Tricuspid Valve Structurally normal tricuspid valve. Trace tricuspid regurgitation. Unable to estimate the right ventricular systolic pressure. Pulmonic Valve Pulmonic valve not well visualized, grossly normal. Pericardium No pericardial effusion. Great Vessels Normal size aortic root. CONCLUSIONS Technically difficult study. Normal global left ventricular size, wall thickness, systolic function with no obvious regional wall motion abnormalities. Left ventricular ejection fraction is estimated at 55 %. Normal right ventricular size and function. Mild right atrial dilatation. Mild to moderate left atrial dilatation. No pericardial effusion. Darien Levi M.D. (Electronically Signed) Final Date: 09 December 2017 20:04 MEASUREMENTS (Male / Female) Normal Values 2D ECHO LV Diastolic Diameter PLAX 5.6 cm 4.2 - 5.9 / 3.9 - 5.3 cm LV Systolic Diameter PLAX 4.0 cm 2.1 - 4.0 cm LV Fractional Shortening PLAX 28.3 % 25 - 46 % LV Ejection Fraction 2D Teich 54.0 % IVS Diastolic Thickness 1.0 cm LVPW Diastolic Thickness 1.0 cm LV Relative Wall Thickness 0.3 RV Internal Dim ED PLAX 3.3 cm 1.9 - 3.8 cm LVOT Diameter 3.6 cm Aortic Root Diameter 3.3 cm LA Systolic Diameter LX 4.4 cm 3.0 - 4.0 / 2.7 - 3.8 cm Ascending Aorta Diameter 3.4 cm DOPPLER AV Peak Velocity 146.5 cm/s AV Peak Gradient 8.6 mmHg AV Mean Velocity 103.0 cm/s AV Mean Gradient 5.0 mmHg AV Velocity Time Integral 31.2 cm LVOT Peak Velocity 58.6 cm/s LVOT Peak Gradient 1.4 mmHg LVOT Mean Velocity 38.6 cm/s LVOT Mean Gradient 1.0 mmHg LVOT Velocity Time Integral 12.1 cm LVOT Stroke Volume 123.7 cm AV Area Cont Eq vti 4.0 cm AV Area Cont Eq pk 4.1 cm MV Peak Velocity 106.0 cm/s MV Peak Gradient 4.5 mmHg MV Mean Velocity 62.5 cm/s MV Mean Gradient 2.0 mmHg Mitral E Point Velocity 117.0 cm/s MV PHT Velocity 105.0 cm/s MV Deceleration Schleicher 207.0 cm/s MV Pressure Half Time 152.2 ms MV Area PHT 1.4 cm MV Deceleration Time 158.0 ms MR Peak Velocity 529.0 cm/s MR Peak Gradient 111.9 mmHg
[2017-12-10 00:11] VITALS: BP 150/72
[2017-12-10 06:30] VITALS: BP 142/78
[2017-12-10 07:54] VITALS: BP 142/78
[2017-12-10 08:22] LABS: ABSOLUTE BASOPHIL COUNT 0 /CUMM (0.0-0.2); ABSOLUTE EOSINOPHIL COUNT 0.2 /CUMM (0.0-0.7); ABSOLUTE GRANULOCYTE CT 4.6 /CUMM (1.4-6.5); ABSOLUTE LYMPH COUNT 2.4 /CUMM (1.2-3.4); ABSOLUTE MONOCYTE COUNT 0.5 /CUMM (0.10-0.60); BASOPHIL % 0.3 % (0.0-2.0); EOSINOPHIL % 2.1 % (0-5); HEMATOCRIT 42.3 % (42-52); MEAN CORPUSCULAR HGB 30.4 PG (27.0-31.0); MEAN CORPUSCULAR HGB CONC 33.6 G/DL (33.0-37.0); MEAN CORPUSCULAR VOLUME 90.6 FL (80.0-94.0); MEAN PLATELET VOLUME 8.7 FL (7.4-10.4); PLATELET COUNT 171 /CUMM (130-400); RBC DISTRIBUTION WIDTH 13.4 % (11.5-14.5); RED BLOOD CELL CT 4.67 /CUMM (4.70-6.10); WHITE BLOOD CELL COUNT 7.7 /CUMM (4.8-10.8)
--- NOTE | 2017-12-10 08:31 | PN- Housestaff ---
Subjective Follow-up For: Left occipital subacute infarct Right hemianopsia JERMAN on CPAP Peripheral neuropathy Subjective: Seen and examined at bedside. No overnight issues, patient wants to leave home. Review of Systems Constitutional: Reports: see HPI. Objective Last 24 Hrs of Vital Signs/I&O Vital Signs Date Time Temp Pulse Resp B/P B/P Pulse O2 O2 Flow FiO2 Mean Ox Delivery Rate 12/10 0754 75 142/78 12/10 0630 98.4 75 18 142/78 97 CPAP 12/10 0044 55 93 12/10 0011 98.0 63 18 150/72 99 CPAP 12/09 2241 68 92 12/09 1600 Room Air 12/09 1600 98.6 71 18 140/76 98 Room Air 12/09 1126 Room Air 12/09 0843 130/80 Intake & Output 12/10 1600 12/10 0800 12/10 0000 Intake Total 220 510 Output Total Balance 220 510 Intake, IV 10 Intake, Oral 220 500 Physical Exam General Appearance: Alert, Oriented X3, Cooperative, No Acute Distress Skin: No Rashes, No Breakdown Skin Temp/Moisture Exam: Warm/Dry HEENT: Atraumatic, PERRLA, EOMI, right hemianopsia Neck: Supple, No JVD Cardiovascular: Normal S1, Normal S2 Lungs: Clear to Auscultation, Normal Air Movement Abdomen: Normal Bowel Sounds, Soft, No Tenderness Neurological: Normal Speech, Strength at 5/5 X4 Ext, Normal Tone, Sensation Intact Extremities: No Clubbing, No Cyanosis, No Edema Vascular: Normal Pulses Current Medications: Current Medications Sig/Yong Start time Last Medication Dose Route Stop Time Status Admin Acetaminophen 650 MG Q6P PRN 12/09 08 DCD PO Acetaminophen 1,000 MG Q6P PRN 12/09 08 DCD IV Atorvastatin Calcium 80 MG 1700 12/08 1930 DCD 12/09 PO 1708 Cyanocobalamin 1,000 MCG DAILY 12/09 899 DCD 12/10 PO 0755 Insulin Aspart 0 TIDAC 12/09 1200 DCD SC Multivitamins 1 TAB DAILY 12/09 09 DCD 12/10 PO 0755 Pregabalin 75 MG BID 12/08 2206 DCD 12/10 PO 0755 Tamsulosin HCl 0.4 MG DAILY 12/09 09 DCD 12/10 PO 0754 Tramadol HCl 50 MG Q6P PRN 09/27 2215 DCD PO Warfarin Sodium 0 .STK-MED ONE 12/09 1705 DC PO Warfarin Sodium 7.5 MG COUMADIN 1700 ONE 12/09 1700 DC 12/09 PO 12/09 1701 1711 Last 24 Hrs of Lab/Tyrone Results Last 24 Hrs of Labs/Mics: Laboratory Tests 12/10/17 0638: Anion Gap 9, Estimated GFR > 60, BUN/Creatinine Ratio 20.0, PT 20.3 H, INR 1.85 H, CBC w Diff NO MAN DIFF REQ, RBC 4.67 L, MCV 90.6, MCH 30.4, MCHC 33.6, RDW 13.4, MPV 8.7, Gran % 60.0, Lymphocytes % 30.7, Monocytes % 6.9, Eosinophils % 2.1, Basophils % 0.3, Absolute Granulocytes 4.6, Absolute Lymphocytes 2.4, Absolute Monocytes 0.5, Absolute Eosinophils 0.2, Absolute Basophils 0 Assessment/Plan Assessment: Patient is an 52-year-old male with past medical history significant for A. fib on warfarin, JERMAN CPAP, HTN, HLD, bilateral lower extremity neuropathy, lower back pain on steroid injections presented to [facility] after being sent for Dr. Fernández for concerns of decreased vision on his right side. Patient started experiencing symptoms 5 days ago. He was recently off anticoagulation for steroid shot to his back for 5 days restarted on dec 02. He had apparently some confusion, headache, chills which continued without any progression. He does have unsteadiness on his feet, some lightheadedness and fatigue at baseline which remain stable. Had an episode of difficulty driving when he is taking a turn and unable to control it. Patient lost his brother recently and his son is going through a divorce and has a lot of stressful events lately. Vital signs at presentation afebrile, heart rate 97, blood pressure 150/70 mmHg, saturating well on room air. Physical examination is significant for type hemianopsia, normal strength, sensation, other cranial loss intact. Lungs clear, heart S1-S2 normal. Labs are significant for INR 2.16, crystals in urine, BUN 21. MRI consistent with left occipital enhancement and petechial hemorrhage which are consistent with subacute infarction. Plan Admiteed to ICU and transferred to telemetry Subacute infarction of left occipital lobe Patient had stroke 5 days ago with residual symptoms of right hemianopsia. Patient did have mild petechial hemorrhage on MRI findings at presentation, so was monitored in ICU with NIH 1 q. he remained stable without any changes in his mental last neurological status. Likely reason for stroke could be being off anti-Coagulation for 5 days before his steroid injection. His INR presentation is 2.16 indicating he is compliant with medications. He was started on atorvastatin 80 mg daily and restarted on anticoagulation with warfarin once neurologically remained stable. Informed not to drive until he had an evaluation with ophthalmology for visual goldsmith. He is recommended to follow with cardiology whenever he stops anticoagulation in the event of any procedures later. JERMAN on CPAP Placed on Nocturnal CPAP Peripheral neuropathy: continue lyrica 75mg BID chronic Low back pain: Steroid injections Nonhodgkins lymphoma: in remission HLD: started on atorvastatin HTN: holded initially, restarted at discharge DVT prophylaxis ALPS Code status Full code Stable for discharge today. Problem List: 1. HTN (hypertension) 2. CVA (cerebral vascular accident) 3. Homonymous hemianopsia Pain Ratin Pain Location: n/a Pain Goal: Pain 4 or less Pain Plan: tylenol Tomorrow's Labs & Rationales: none
[2017-12-10 08:32] LABS: PT 20.3 SEC (9.4-12.5)
[2017-12-10] MEDS ORDERED: LIPITOR80 M1 PO (13:16)
--- NOTE | 2017-12-10 13:21 | Patient Discharge Instructions ---
Discharge Instructions General Discharge Information You were seen/treated for: Sub acute ischemic stroke Special Instructions: please follow up with your PCP in a week 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 with opthalmologist in a week Please do not drive untill cleared by opthalmologist. 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 () in a week 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 with Neurologist in a week Diet Recommended Diet: Diabetic Activity Activity Self Limited: Yes Acute Coronary Syndrome Inclusion Criteria At DC or during hospital stay patient has or had the following: ACS DIAGNOSIS No Discharge Core Measures Meds if any: Prescribed or Continued at Discharge Meds if any: NOT Prescribed or Continued at Discharge Congestive Heart Failure Inclusion Criteria At DC or during hospital stay patient has or had the following: CHF DIAGNOSIS No Discharge Core Measures Meds if any: Prescribed or Continued at Discharge Meds if any: NOT Prescribed or Continued at Discharge Cerebrovascular accident Inclusion Criteria At DC or during hospital stay patient has or had the following: CVA/TIA Diagnosis Yes Discharge Core Measures Meds if any: Prescribed or Continued at Discharge Antithrombotic No Statin (required if LDL =>70) Yes Anticoagulant No Meds if any: NOT Prescribed or Continued at Discharge No Antithrombotic d/t Medical Contraindication No Anticoagulant d/t Medical Contraindication Venous thromboembolism Inclusion Criteria VTE Diagnosis No VTE Type NONE VTE Confirmed by (Test) NONE Discharge Core Measures - Per Current guidelines, there needs to be overlap - treatment for the first 5 days of Warfarin therapy. - If discharged on Warfarin prior to 5 days of - overlap therapy, the patient will need to be - assessed for post discharge needs including - *Post discharge parental anticoagulation - *Warfarin and/or parental anticoagulation education - *Follow up date to check INR post discharge At least 5 days overlap therapy as Inpatient No Meds if any: Prescribed or Continued at Discharge Note: Overlap Therapy is Warfarin and Anticoagulant Meds if any: NOT Prescribed or Continued at Discharge
--- NOTE | 2017-12-10 13:22 | Discharge Summary ---
Visit Information Visit Dates Admission Date: 12/08/17 Discharge Date: 12/10/17 Hospital Course Course Attending Physician: Dick Savage MD Primary Care Physician: Jolene PACHECO,Rajesh Guaman Consulting Request: 1 Consulting Specialty: Neurology Consulting Physician: Reason for Consult: CVA Consulting Request: 2 Consulting Specialty: Cardiology Consulting Physician: Dr. Levi Reason for Consult: A.fib now with stroke Hospital Course: Patient is an 52-year-old male with past medical history significant for A. fib on warfarin, JERMAN CPAP, HTN, HLD, bilateral lower extremity neuropathy, lower back pain on steroid injections presented to [place] after being sent for Dr. Fernández for concerns of decreased vision on his right side. Patient started experiencing symptoms 5 days ago. He was recently off anticoagulation for steroid shot to his back for 5 days restarted on dec 02. He had apparently some confusion, headache, chills which continued without any progression. He does have unsteadiness on his feet, some lightheadedness and fatigue at baseline which remain stable. Had an episode of difficulty driving when he is taking a turn and unable to control it. Patient lost his brother recently and his son is going through a divorce and has a lot of stressful events lately. Vital signs at presentation afebrile, heart rate 97, blood pressure 150/70 mmHg, saturating well on room air. Physical examination is significant for type hemianopsia, normal strength, sensation, other cranial loss intact. Lungs clear, heart S1-S2 normal. Labs are significant for INR 2.16, crystals in urine, BUN 21. MRI consistent with left occipital enhancement and petechial hemorrhage which are consistent with subacute infarction. Plan Admiteed to ICU and transferred to telemetry Subacute infarction of left occipital lobe Patient had stroke 5 days ago with residual symptoms of right hemianopsia. Patient did have mild petechial hemorrhage on MRI findings at presentation, so was monitored in ICU with NIH 1 q. he remained stable without any changes in his mental last neurological status. Likely reason for stroke could be being off anti-Coagulation for 5 days before his steroid injection. His INR presentation is 2.16 indicating he is compliant with medications. He was started on atorvastatin 80 mg daily and restarted on anticoagulation with warfarin once neurologically remained stable. Informed not to drive until he had an evaluation with ophthalmology for visual goldsmith. He is recommended to follow with cardiology whenever he stops anticoagulation in the event of any procedures later. JERMAN on CPAP Placed on Nocturnal CPAP Peripheral neuropathy: continue lyrica 75mg BID chronic Low back pain: Steroid injections Nonhodgkins lymphoma: in remission HLD: started on atorvastatin HTN: holded initially, restarted at discharge DVT prophylaxis ALPS Code status Full code Complications: none Allergies: Coded Allergies: shrimp (Severe, ANAPHYLAXIS 09/17/16) Significant Procedures: Head CT on 12/09/17 IMPRESSION: 1. There are sequelae of an infarct in the left occipital lobe, demonstrated on prior imaging. There is no evidence of new acute hemorrhage. 2. There is mild diffuse volume loss and there are chronic microvascular ischemic changes. Echocardiogram on 12/09/17 CONCLUSIONS Technically difficult study. Normal global left ventricular size, wall thickness, systolic function with no obvious regional wall motion abnormalities. Left ventricular ejection fraction is estimated at 55 %. Normal right ventricular size and function. Mild right atrial dilatation. Mild to moderate left atrial dilatation. No pericardial effusion. Head MRI IMPRESSION: Mildly expansile gyriform T2/FLAIR hyperintensity in the left occipital lobe with associated enhancement and petechial hemorrhage. The imaging findings interpreted in conjunction with the prior head CT are most compatible with a subacute infarct. No underlying mass lesion is seen. The remainder of the brain parenchyma is within normal limits allowing for moderate small vessel ischemic changes in the cerebral white matter and central dejon. Head CT on 12/08/17 IMPRESSION: - Ill-defined attenuation in the subcortical white matter of the high left parietal lobe with underlying lesion is suspected. Given that the cortical costa matter appears spared an infarct is considered less likely. A dedicated brain tumor protocol MRI without and with contrast is recommended for diagnostic evaluation. No significant mass effect. - No other acute intracranial abnormality. Carotid doppler ultrasound FINDINGS: 1. On the right: No plaque is present at the carotid bifurcation and all velocity measurements are normal and do not suggest a stenosis of greater than 50% diameter reduction in the right ICA. The vertebral artery is patent demonstrating antegrade flow. The external carotid on the right shows no significant stenosis. 2. On the left: Plaque is present at the carotid bifurcation but velocity measurements are normal and do not suggest a stenosis of greater than 50% diameter reduction in the left ICA. The vertebral artery is patent demonstrating antegrade flow. The external carotid artery on the left shows no significant stenosis. IMPRESSION: There is plaque present in the left internal carotid artery with normal velocities consistent with a minimal 0-49% stenosis. The right side is normal with no plaque seen. 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 - 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 with your batch blender () in a week 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 with Neurologist in a week Medications at Discharge Discharge Medications: Stop taking the following medications: Pravastatin Sodium (Pravachol) 40 MG TABLET ORAL DAILY Continue taking these medications: Amlodipine Besylate (Norvasc) 5 MG TABLET 1 Tablet ORAL DAILY Comments: NOT GIVEN IN HOSPITAL Tramadol HCl (Tramadol HCl) 50 MG TABLET 1 Tablet ORAL EVERY SIX HOURS NEEDED as needed for PAIN Qty = 120 Comments: NOT GIVEN IN HOSPITAL Multivit-Min/FA/Lycopen/Lutein (Centrum Silver Tablet) 0.4 MG-300 MCG-250 MCG TABLET 1 Tablet ORAL DAILY Comments: Last Taken:12/10/17 Time:0755 Metformin HCl (Metformin HCl) 500 MG TABLET 1 Tablet ORAL Every night Qty = 60 Comments: NOT GIVEN IN HOSPITAL Tamsulosin HCl (Tamsulosin HCl) 0.4 MG CAP.ER.24H 1 Capsule ORAL DAILY Qty = 30 Comments: Last Taken:12/10/17 Time:0755 Cholecalciferol (Vitamin D3) 1,000 UNIT TABLET 1 Tablet ORAL DAILY Comments: NOT GIVEN IN HOSPITAL Warfarin Sodium (Coumadin) 7.5 MG TABLET 1 Tablet ORAL DAILY Comments: Last Taken:12/09/17 Time:1711 Cyanocobalamin (Vitamin B-12) 1,000 MCG TABLET 1 Tablet ORAL DAILY Comments: Last Taken:12/10/17 Time:0755 Pregabalin (Lyrica) 75 MG CAPSULE 1 Capsule ORAL TWICE DAILY Qty = 60 Comments: Last Taken:12/10/17 Time:0755 Celecoxib (Celecoxib) 200 MG CAPSULE 1 Capsule ORAL TWICE DAILY Qty = 180 Comments: NOT GIVEN IN HOSPITAL Start taking the following new medications: Atorvastatin Calcium (Lipitor) 80 MG TABLET 1 Tablet ORAL DAILY Qty = 30 No Refills Comments: Last Taken:12/09/17 Time:1708 Copies To: Julia PACHECO,Thomas White; Elo PACHECO,Gen Pringle; Jolene PACHECO,Rajesh Guaman; Amita PACHECO, Ozzie Barnard MD,Skyler Ya Attending MD Review Statement Documenting Attending: Dick Savage MD
== END 2017-12-10 14:35 | DRG 64 ==
LOC: ERH 09:47 → ERHI 18:32 → 1NO 18:32 → CRI 18:32 → ENRESERV 20:12 → ENTRNSPT 21:03 → EDTRNSPTSTS 21:05 → 1NO 21:35 → CRI 21:35 → CMPTRNSPT 21:57 → DELTRNSPT 22:01 → CRI 23:06 → 1NO 12-09 23:45 → ENTRNSPT 12-10 14:33 → 1NO 12-10 14:35 → CMPTRNSPT 12-10 14:41
PROVIDERS: Internal Medicine; Physician Assistant; Preventive Medicine Public Health & General Preventive Medicine
DX: I63.9 Cerebral infarction, unspecified (principal); I61.8 Other nontraumatic intracerebral hemorrhage; D68.32 Hemorrhagic disorder due to extrinsic circulating anticoagulants; I48.1 Persistent atrial fibrillation; H53.461 Homonymous bilateral field defects, right side; R29.810 Facial weakness; I10 Essential (primary) hypertension; T45.515A Adverse effect of anticoagulants, initial encounter; Z79.01 Long term (current) use of anticoagulants; G47.33 Obstructive sleep apnea (adult) (pediatric); Z85.72 Personal history of non-Hodgkin lymphomas; E11.21 Type 2 diabetes mellitus with diabetic nephropathy; M54.5 Low back pain; I25.10 Atherosclerotic heart disease of native coronary artery without angina pectoris; Z79.84 Long term (current) use of oral hypoglycemic drugs; R26.9 Unspecified abnormalities of gait and mobility; E78.5 Hyperlipidemia, unspecified
CPT/HCPCS: 1NSP; 70552; CCU; 36415; 70553; 80307; 81001; 82436; 93005; 93010; 93306; 97116-GO; 97161-GP; A9579; J0131; J3490